=== PATIENT | female | born 1960 | race Caucasian/White ===

== ENCOUNTER → 2016-07-25 | Outpatient (CLI) | payer OTHER ==
[~2016-07-25] MED LIST: Gadobutrol 7.5 mMOL/7.5 ML SDV IVPUSH STA
--- NOTE | 2016-07-27 10:42 | MR ---
EXAM DATE: 07/25/16 PATIENT'S AGE: 56 Patient: NELDA STAFFORD Facility: [facility] Site . Site : 1960 Study: MRI-Head W/ and W/O Cont [id number]/2017 10:12:32 AM Ordering Physician: Ok Kumar Final Report: INDICATION: Headache. Dizziness. TECHNIQUE: The entire head was imaged in the axial plane emphasizing EPI DWI and EPI ADC mapping sequences as well as FLAIR and T2-weighted FSE sequences. A T1-weighted sagittal sequence was also obtained. Following the uneventful intravenous administration of gadolinium-based contrast agent, high resolution T1-weighted coronal and sagittal sequences through the sella turcica and adjacent structures were also obtained. Dynamic SE T1-weighted coronal sequences through the sella turcica were obtained during the injection of contrast material. FINDINGS: There are multiple subcentimeter foci of long TR and FLAIR signal hyperintensity in the jennifer and a few scattered throughout the white matter of both cerebral hemispheres, none of which demonstrates restricted diffusion or pathologic enhancement. There is no mass, mass effect, or focus of pathologic enhancement elsewhere in the brain. There is no evidence for recent or prior hemorrhage. There is no focus of restricted diffusion or pathologic enhancement to suggest recent infarction, active demyelination or acute inflammation. The configuration of the ventricular system is within normal limits. There is no significant abnormality within the sella turcica or the adjacent structures. The adenohypophysis is normal in size, contour, signal intensity and enhancement pattern. There is no focus of relative nonenhancement to suggest a pituitary microadenoma. The neurohypophysis demonstrates normal T1 shortening prior to gadolinium administration. The cavernous sinuses and their contents, Meckels caves, the suprasellar cistern, the hypophyseal stalk, hypothalamus and optic chiasm are all normal in appearance. All the major intracranial vascular structures demonstrate normal flow-related signal voids and normal intraluminal enhancement . There is no evidence for aneurysm arising from the cavernous or supraclinoid segments of the internal carotid arteries on either side. The signal arising from the marrow of the clivus is normal. The sphenoid sinus is clear. The orbits and their contents are unremarkable. IMPRESSION: 1. Nonspecific subcentimeter foci of signal abnormality in the jennifer and white matter of both cerebral hemispheres. Differential diagnosis includes a sequelae of chronic microvascular ischemia and/ or prior lacunar infarctions as well as prior demyelination prior inflammation. Findings such as these are not unusual in patients who suffer from migraine headaches. 2. Otherwise Normal dedicated high resolution images of the sella turcica, its contents and adjacent structures. Dictated by Jordy Cerda MD @ Jul 26 2016 5:35PM Signed by: Jordy Cerda MD @07/26/2016 5:41:08 PM (Electronic Signature) Report Signed by Proxy and Original Signed Document filed in the Medical Record. MTDD
== END ==
LOC: MW.MRI 08:30
PROVIDERS: ATTEND Student in an Organized Health Care Education/Training Program
DX: R51 Headache (principal); R42 Dizziness and giddiness
CPT/HCPCS: 70553; A9585

== ENCOUNTER → 2016-10-31 | Day surgery (SDC) | payer OTHER ==
[~2016-10-31] MED LIST changes: +Acetaminophen/HYDROcodone 325-5 MG Tab PO PRN; -Gadobutrol 7.5 mMOL/7.5 ML SDV IVPUSH STA; +Lactated Ringers 1,000 ML IV SCH; +ceFAZolin 2 GM in Premix Bag 1 BAG IV SCH; +fentaNYL 100 MCG/2 ML SDV IVPUSH PRN
--- NOTE | 2016-10-31 09:11 | PCM.PREANE ---
Preanesthetic Assessment - Anesthesia/Transfusion/Family Hx Anesthesia History: Prior Anesthesia Without Reaction Transfusion History: No Prior Transfusion(s) - Review of Systems General: No Symptoms Pulmonary: No Symptoms Cardiovascular: No Symptoms Gastrointestinal: No symptoms Neurological: No Symptoms Other: Reports: None - Physical Assessment O2 Sat by Pulse Oximetry: 95 Respiratory Rate: 16 Vital Signs: Last Vital Signs Temp 97.7 F 10/31/16 07:51 Pulse 73 10/31/16 07:51 Resp 16 10/31/16 07:51 BP 158/84 H 10/31/16 07:51 Pulse Ox 95 10/31/16 07:51 Height: 5 ft 3 in Weight: 99.79 kg ASA Class: 2 Mental Status: Alert & Oriented x3 Airway Class: Mallampati = 2 Dentition: Reports: Normal Dentition Thyro-Mental Finger Breadths: 3 Mouth Opening Finger Breadths: 3 ROM/Head Extension: Full Lungs: Clear to auscultation, Normal respiratory effort Cardiovascular: Regular Rate, Regular Rhythm - Allergies Allergies/Adverse Reactions: Allergies Allergy/AdvReac Type Severity Reaction Status Date / Time Sulfa (Sulfonamide Allergy Nausea and Verified 10/20/16 08:07 Antibiotics) Vomiting - Anesthesia Plan Free Text/Narrative:: BMP ordered, New diagnosis Hyperaldosteronism in last 12 months with no follow- up - Acknowledgements Anesthesia Type Planned: General Anesthesia Pt an Appropriate Candidate for the Planned Anesthesia: Yes Alternatives and Risks of Anesthesia Discussed w Pt/Guardian: Yes Pt/Guardian Understands and Agrees with Anesthesia Plan: Yes PreAnesthesia Questionnaire HEENT History: Reports: Allergic Rhinitis Cardiovascular History: Reports: Hypertension Respiratory History: Reports: None Gastrointestinal History: Reports: GERD, Hiatal Hernia Genitourinary History: Reports: Renal Calculus (04/01 - bilateral non- obstructing renal stones) 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: Musculoskeletal History: Reports: Arthritis Neurological History: Reports: Migraines Psychiatric History: Reports: Anxiety, Depression Endocrine/Metabolic History: Reports: Hypothyroidism, Obesity/BMI 30+, Other ( See Below) (Parathyroid disorder (pt unable to recall much about this)) Other Endocrine/Metabolic History: on thyroid medication in the past, currently not on anything Hematologic History: Reports: Anesthesia Reaction (N/V post-op in the past well controlled with IV intra-op interventions per patient (Has never had Scop Patch) ) Immunologic History: Reports: None Oncologic (Cancer) History: Reports: None Dermatologic History: Reports: None - Infectious Disease History Infectious Disease History: Reports: None - Past Surgical History Head Surgeries/Procedures: Reports: None GI Surgical History: Reports: Appendectomy, Cholecystectomy Female Surgical History: Reports: Breast Biopsy, Section - SUBSTANCE USE Smoking Status *Q: Never Smoker Recreational Drug Use History: No - HOME MEDS Home Medications: Home Meds Calcitriol 0.5 mcg PO BID 10/20/16 [History] Escitalopram Oxalate 10 mg PO DAILY 10/20/16 [History] Losartan Potassium 50 mg PO BEDTIME 10/20/16 [History] Spironolactone [Aldactone] 50 mg PO DAILY 10/20/16 [History] buPROPion HCl [Wellbutrin Xl] 150 mg PO DAILY 10/20/16 [History] - CURRENT (IN HOUSE) MEDS Current Meds: Current Medications Hydrocodone Bitart/Acetaminophen ([place] 325-5 Mg) 1 - 2 tab PO Q4H PRN PRN Reason: Pain Lactated Ringer's (Ringers, Lactated) 1,000 mls @ 100 mls/hr IV ASDIRECTED [facility] Last Admin: 10/31/16 08:12 Dose: 100 mls/hr Cefazolin Sodium/Dextrose 2 gm (/ Premix) 50 mls @ 100 mls[facility]
--- NOTE | 2016-10-31 09:32 | PCM.OPNOTE ---
- General Post-Op/Procedure Note Date of Surgery/Procedure: 10/31/16 Operative Procedure(s): Left knee arthroscopy with PMM Post-Op Diagnosis: Left knee DJD. Left knee medial meniscus tear Anesthesia Technique: General LMA Primary Surgeon: Laisha Pepe Assurance Specialist: Roxanne Elkins in mLs: 5 Condition: Good Free Text/Narrative:: tt=15 min #[id number] Pt stated preoperatively that she has a h/o hypoaldosteronism. She has had hypokalemia in the past. Preoperative labs were ordered and wnl. She is encouraged to f/u with a PCP for further evaluation of this postoperatively.
--- NOTE | 2016-10-31 10:56 | PCM48HPAN ---
Post Anesthesia Note - EVALUATION WITHIN 48HRS OF ANESTHETIC Vital Signs in Normal Range: Yes Patient Participated in Evaluation: Yes Respiratory Function Stable: Yes Airway Patent: Yes Cardiovascular Function Stable: Yes Hydration Status Stable: Yes Pain Control Satisfactory: Yes Nausea and Vomiting Control Satisfactory: Yes Mental Status Recovered: Yes
--- NOTE | 2016-10-31 10:57 | PCM.POSTAN ---
POST ANESTHESIA ASSESSMENT - MENTAL STATUS Mental Status: alert, oriented - RESPIRATORY Respiratory Status: respiratory rate WNL, airway patent, O2 saturation stable - CARDIOVASCULAR CV Status: pulse rate WNL, blood pressure stable - GASTROINTESTINAL GI Status: no symptoms - POST OP HYDRATION Hydration Status: adequate & stable
[2016-10-31 11:55] VITALS: BP 132/63
--- NOTE | 2016-11-01 06:05 | OR ---
SURGEON: Laisha Pepe MD DATE OF PROCEDURE: 10/31/2016 PREOPERATIVE DIAGNOSIS: Left knee degenerative joint disease. POSTOPERATIVE DIAGNOSES: 1. Left knee degenerative joint disease. 2. Left knee medial meniscus tear. PROCEDURE: Left knee arthroscopy with partial medial meniscectomy. ANGULAR DEVELOPER: MARY JANE Sal ANESTHESIA: General. ESTIMATED BLOOD LOSS: 5 mL. TOURNIQUET TIME: 15 minutes. COMPLICATIONS: None. DVT PROPHYLAXIS: Not indicated. IMPLANTS USED: None. BRIEF HISTORY: Elisa is a 56-year-old female, who has had complaint of progressive left knee pain. She did have an MRI, which did show truncation of the medial meniscus along with degenerative changes. She did not have any response to the diagnostic/therapeutic injection. Due to her lack of response to conservative treatment, I did recommend surgical intervention. The risks and goals of the procedure were discussed with the patient and were documented preoperatively. She agreed to proceed. DESCRIPTION OF PROCEDURE: The patient was properly identified and brought to the operating room. She was transferred from the OR cart and placed on the operating table in supine position. General anesthesia was administered. After adequate anesthesia was obtained, a well-padded tourniquet was applied to the left lower extremity. The left lower extremity was then prepped in standard fashion using ChloraPrep solution. It was then sterilely draped. A time-out was performed to ensure correct site and procedure. Preoperative antibiotics were given. The surgical site had been marked preoperatively. An Esmarch was used to exsanguinate the left lower extremity and the tourniquet was inflated to 250 mmHg. A lateral portal arthrotomy was established. Blunt trocar and cannula were introduced into the suprapatellar pouch. Camera, inflow, and outflow were assembled. No significant synovitis was noted within the suprapatellar pouch. The patellofemoral joint was visualized. 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 The patella appeared to track centrally. I then extended down the lateral and medial gutter. No loose bodies were identified. I then entered the medial compartment. A medial portal arthrotomy was established. A blunt probe was inserted. The meniscus was probed. There was an area of undersurface tearing along the central portion of the posterior horn. This was resected with a combination of biters and shaver. The meniscus was again probed and found to be stable. She did have an area of measuring approximately 15 mm x 20 mm over the central portion of the medial femoral condyle of grade 3 chondromalacia. This was smoothed using the shaver. No further cartilage flaps were noted. The medial tibial plateau showed diffuse grade 2 to grade 3 chondromalacia as well. I then entered the notch. Both the ACL and PCL were visualized and probed and found to be intact. I finally entered the lateral compartment. Again, degenerative changes were noted with a grade 2 chondromalacia along the lateral tibial plateau. There was a small area measuring approximately 5 mm x 5 mm over the posterior aspect of the lateral femoral condyle. A chondroplasty was performed on this area as well with the shaver as there were some loose cartilage fragments. The meniscus was extensively probed and no tearing or instability was noted. I then re-entered the patellofemoral joint. The shaver was used to resect the loose cartilage along the central portion of the trochlea. This defect was grade 3 to grade 4, which measured approximately 15 mm x 15 mm. Instruments were then removed from the knee. The portal sites were closed with 3-0 nylon. Lidocaine 1% was injected along the portal tracts. Xeroform gauze was placed over the wound and a bulky dressing was applied. Tourniquet was then deflated. She was awakened from her anesthetic and transferred back to the operating room cart. She was brought to recovery room in stable condition. All needle and sponge counts were correct. RANDELL / CINTIA /[id number]
== END ==
LOC: MW.SDS 07:30
PROVIDERS: ATTEND Orthopaedic Surgery
PROC: 0SBD4ZZ Excision of Left Knee Joint, Percutaneous Endoscopic Approach (ICD-10-PCS; principal; 2016-10-31)
DX: S83.242A Other tear of medial meniscus, current injury, left knee, initial encounter (principal); M17.12 Unilateral primary osteoarthritis, left knee; M22.41 Chondromalacia patellae, right knee; F32.9 Major depressive disorder, single episode, unspecified; K21.9 Gastro-esophageal reflux disease without esophagitis; I10 Essential (primary) hypertension; M19.90 Unspecified osteoarthritis, unspecified site; E20.1 Pseudohypoparathyroidism; E87.6 Hypokalemia; E03.9 Hypothyroidism, unspecified; I45.10 Unspecified right bundle-branch block; F41.9 Anxiety disorder, unspecified; E26.9 Hyperaldosteronism, unspecified; E66.9 Obesity, unspecified; Z87.442 Personal history of urinary calculi; Z79.899 Other long term (current) drug therapy; Z88.2 Allergy status to sulfonamides; Z90.49 Acquired absence of other specified parts of digestive tract; Z98.890 Other specified postprocedural states; Z68.37 Body mass index [BMI] 37.0-37.9, adult
CPT/HCPCS: 29881; 36415; 80048; 93005; J7120; 01400; 88304; J1885; J2250; J2405; J2704; J3010

== ENCOUNTER 2017-07-10 07:07 | Inpatient (IN) | payer OTHER ==
[~2017-07-10 07:07] MED LIST changes: -Acetaminophen/HYDROcodone 325-5 MG Tab PO PRN; +Famotidine 20 MG/2 ML SDV IVPUSH SCH; +Ketorolac 30 MG/ML SDV IVPUSH SCH; -Lactated Ringers 1,000 ML IV SCH; +Scopolamine 1.5 MG Transdermal Patch TRDERM SCH; -ceFAZolin 2 GM in Premix Bag 1 BAG IV SCH; -fentaNYL 100 MCG/2 ML SDV IVPUSH PRN; +oxyCODONE ER 20 MG TAB.ER PO SCH
[2017-07-10] MEDS ORDERED: Lidocaine 2% 5 ML SDV ONE (07:24)
[2017-07-10] MEDS ORDERED: Propofol 200 MG/20 ML SDV ONE ×2 (07:25→09:11)
[2017-07-10] MEDS ORDERED: Midazolam 1 MG/ML 2 ML SDV ONE (07:25)
[2017-07-10] MEDS ORDERED: fentaNYL 100 MCG/2 ML SDV ONE (07:25)
[2017-07-10] MEDS: Lactated Ringers 1,000 ML IV SCH ×2 (07:25→19:03)
[2017-07-10] MEDS ORDERED: Ketorolac 30 MG/ML SDV ONE (07:28)
[2017-07-10] MEDS ORDERED: ePHEDrine 50 MG/ML SDV ONE (07:28)
[2017-07-10] MEDS ORDERED: Ondansetron 4 MG/2 ML SDV ONE (07:28)
[2017-07-10] MEDS ORDERED: Tranexamic Acid 4,000 MG in Sodium Chloride 0.9% 100 ML IV SCH (08:00)
[2017-07-10] MEDS ORDERED: ceFAZolin 2 GM in Premix Bag 1 BAG IV SCH (08:00)
[2017-07-10] MEDS ORDERED: Ropivacaine 49.25 ML, Ketorolac 30 MG, EPINEPHrine 0.5 MG, cloNIDine 80 MCG in Sodium C... INJECT SCH (08:00)
[2017-07-10] MEDS ORDERED: oxyCODONE 5 MG Tab PO PRN (08:26)
[2017-07-10] MEDS ORDERED: Bisacodyl 10 MG Supp RECTAL PRN (08:26)
[2017-07-10] MEDS ORDERED: Aluminum Hydroxide/Magnesium Hydroxide/Simethicone Susp 30 ML Cup PO PRN (08:26)
[2017-07-10] MEDS ORDERED: diphenhydrAMINE 50 MG/ML SDV IVPUSH PRN (08:26)
[2017-07-10] MEDS ORDERED: Morphine PF 30 MG/30 ML PCA Vial IV SCH (08:30)
--- NOTE | 2017-07-10 08:33 | PCM.PREANE ---
Preanesthetic Assessment - Procedure Proposed Procedure: left knee replacement - Anesthesia/Transfusion/Family Hx Anesthesia History: Prior Anesthesia Without Reaction Other Type of Anesthesia Reaction Comment: states "I have a hard time coming out of anesthesia" Family History of Anesthesia Reaction: No Transfusion History: No Prior Transfusion(s) - Review of Systems General: Other (pseudohypoparathyroidism, primary hyperaldosteronism, HTN, depression/anxiety disorder, osteoarthritis) Pulmonary: No Symptoms Cardiovascular: No Symptoms Gastrointestinal: No Symptoms Neurological: Difficulty Walking (due to left knee pain) - Physical Assessment NPO Status Date: 07/09/17 NPO Status Time: 23:00 O2 Sat by Pulse Oximetry: 94 Respiratory Rate: 16 Vital Signs: Last Vital Signs Temp 97.5 F 07/10/17 07:12 Pulse 69 07/10/17 07:12 Resp 16 07/10/17 07:12 BP 137/75 07/10/17 07:12 Pulse Ox 94 L 07/10/17 07:12 Height: 5 ft 3 in Weight: 220 lb ASA Class: 3 Mental Status: Alert & Oriented x3 Airway Class: Mallampati = 2 Dentition: Reports: Normal Dentition Thyro-Mental Finger Breadths: 3 Mouth Opening Finger Breadths: 3 ROM/Head Extension: Limited/Partial (short, full neck) - Lab Values: Laboratory Last Values Blood Type A POSITIVE 07/10/17 07:30 Antibody Screen NEGATIVE 07/10/17 07:30 - Allergies Allergies/Adverse Reactions: Allergies Allergy/AdvReac Type Severity Reaction Status Date / Time hydrocodone Allergy Intermediate Rash Verified 07/10/17 07:51 Sulfa (Sulfonamide Allergy Nausea and Verified 07/10/17 07:49 Antibiotics) Vomiting - Blood Blood Available: No Product(s) Available: None (T and S) - Anesthesia Plan Pre-Op Medication Ordered: Other (per surgeon) - Acknowledgements Anesthesia Type Planned: Spinal (possible general as needed) Pt an Appropriate Candidate for the Planned Anesthesia: Yes Alternatives and Risks of Anesthesia Discussed w Pt/Guardian: Yes Pt/Guardian Understands and Agrees with Anesthesia Plan: Yes PreAnesthesia Questionnaire HEENT History: Reports: Allergic Rhinitis Cardiovascular History: Reports: Hypertension Respiratory History: Reports: None Gastrointestinal History: Reports: GERD, Hiatal Hernia Genitourinary History: Reports: Renal Calculus 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, Musculoskeletal History: Reports: Arthritis Neurological History: Reports: Migraines Psychiatric History: Reports: Anxiety, Depression Endocrine/Metabolic History: Reports: Hypothyroidism, Obesity/BMI 30+, Other ( See Below) Other Endocrine/Metabolic History: on thyroid medication in the past, currently not on anything, has primary hyperaldosteronism due to a left adrenal adenoma Hematologic History: Immunologic History: Reports: None Oncologic (Cancer) History: Reports: None Dermatologic History: Reports: None - Infectious Disease History Infectious Disease History: Reports: None - Past Surgical History Head Surgeries/Procedures: Reports: None GI Surgical History: Reports: Appendectomy, Cholecystectomy Female Surgical History: Reports: Breast Biopsy, Section Musculoskeletal Surgical History: Reports: Arthroscopic Knee - SUBSTANCE USE Smoking Status *Q: Never Smoker Recreational Drug Use History: No - HOME MEDS Home Medications: Home Meds Escitalopram Oxalate 10 mg PO DAILY 10/20/16 [History] Losartan Potassium 50 mg PO BEDTIME 10/20/16 [History] Spironolactone [Aldactone] 50 mg PO DAILY 10/20/16 [History] buPROPion HCl [Wellbutrin Xl] 150 mg PO DAILY 10/20/16 [History] Lansoprazole [Prevacid] 30 mg PO DAILY 07/05/17 [History] Mirabegron [Myrbetriq] 50 mg PO DAILY 07/05/17 [History] - CURRENT (IN HOUSE) MEDS Current Meds: Current Medications Famotidine (Pepcid) 40 mg IVPUSH [facility] Last Admin: 07/10/17 07:27 Dose: 40 mg Cefazolin Sodium/Dextrose 2 gm (/ Premix) 50 mls @ 100 mls/hr IV ONCALL [facility] Ropivacaine 49.25 ml/Ketorolac Tromethamine 30 mg/Epinephrine HCl 0.5 mg/ Clonidine HCl 80 mcg/ Sodium Chloride 100 mls @ 50 mls/sec INJECT ASDIRECTED [facility] Lactated Ringer's (Ringers, Lactated) 1,000 mls @ 100 mls/hr IV ASDIRECTED [facility] Last Admin: 07/10/17 07:25 Dose: 100 mls/hr Tranexamic Acid 4,000 mg/ (Sodium Chloride) 140 mls @ 600 mls/hr IV ASDIRECTED [facility] Ketorolac Tromethamine (Toradol) 30 mg IVPUSH [facility] Last Admin: 07/10/17 07:28 Dose: 30 mg Oxycodone HCl (Oxycontin) 20 mg PO ON[facility] Last Admin: 07/10/17 07:26 Dose: 20 mg Scopolamine (Transderm-Scop) 1.5 mg TRDERM [facility] Last Admin: 07/10/17 07:26 Dose: 1.5 mg Discontinued Medications Ephedrine Sulfate (Ephedrine Sulfate) Confirm Administered Dose 50 mg .ROUTE .STK-MED ONE Stop: 07/10/17 07:29 Fentanyl (Sublimaze) Confirm Administered Dose 100 mcg .ROUTE .STK-MED ONE Stop: 07/10/17 07:26 Ketorolac Tromethamine (Toradol) Confirm Administered Dose 30 mg .ROUTE .STK- MED ONE Stop: 07/10/17 07:29 Lidocaine (Xylocaine-Mpf 2%) Confirm Administered Dose 10 ml .ROUTE .STK-MED ONE Stop: 07/10/17 07:25 Midazolam HCl (Versed 1 Mg/Ml) Confirm Administered Dose 2 mg .ROUTE .STK-MED ONE Stop: 07/10/17 07:26 Ondansetron HCl (Zofran) Confirm Administered Dose 4 mg .ROUTE .STK-MED ONE Stop: 07/10/17 07:29 Propofol (Diprivan 20 Ml) Confirm Administered Dose 400 mg .ROUTE .STK-MED ONE Stop: 07/10/17 07:26 Tranexamic Acid (Cyklokapron) Confirm Administered Dose 4,000 mg .ROUTE .STK- MED ONE Stop: 07/10/17 07:16
[2017-07-10] MEDS ORDERED: fentaNYL 100 MCG/2 ML SDV IVPUSH PRN (10:28)
--- NOTE | 2017-07-10 10:48 | PCM.OPNOTE ---
- General Post-Op/Procedure Note Date of Surgery/Procedure: 07/10/17 Operative Procedure(s): L TKA Post-Op Diagnosis: DJD left knee Anesthesia Technique: Moderate Sedation, Spinal Primary Surgeon: Laisha Pepe Clothing Trades Workers: Roxanne Elkins in mLs: 50 Condition: Good Free Text/Narrative:: tt=41 min #[id number]
--- NOTE | 2017-07-10 11:29 | PCM.POSTAN ---
POST ANESTHESIA ASSESSMENT - MENTAL STATUS Mental Status: Alert, Oriented - RESPIRATORY Respiratory Status: Respiratory Rate WNL, Airway Patent, O2 Saturation Stable - CARDIOVASCULAR CV Status: Pulse Rate WNL, Blood Pressure Stable - GASTROINTESTINAL GI Status: No Symptoms - PAIN Pain Score: 0 (spinal still active) - POST OP HYDRATION Hydration Status: Adequate & Stable - OBSERVATIONS Free Text/Narrative:: Phase II transfer...stable condition
--- NOTE | 2017-07-10 12:26 | PCM.CONS ---
H&P History of Present Illness - General Date of Service: 07/10/17 Admit Problem/Dx: Admission Diagnosis/Problem Admission Diagnosis/Problem Replacement of left total knee joint Source of Information: Patient, Old Records (Reviewed Dr Malone and Dr Soriano's notes. 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 She has arrived to Med/Surg from the PACU, she is alert but drowsy. Hospitalist team consulted for medical management of comorbidities Pre-operative clearance notes reviewed from Dr Malone and Dr Soriano, gallery or museum guide. Elisa reports she is feeling well. No current chest pain, SOB, nausea or vomiting. Some L knee pain, but tolerable. She was just sitting up with PT at the edge of the bed. Post-operative labwork obtained due to hx of recent hypercalcemia and NEREIDA. Hgb 11.9. Na 140, K+ 4.4, BUN 24, Cr 1.2, Mg 1.5, Ca 9.3. Left Knee Pain Score (Numeric/FACES): 1 - Related Data Allergies/Adverse Reactions: Allergies Allergy/AdvReac Type Severity Reaction Status Date / Time hydrocodone Allergy Intermediate Rash Verified 07/10/17 07:51 Sulfa (Sulfonamide Allergy Nausea and Verified 07/10/17 07:49 Antibiotics) Vomiting Home Medications: Home Meds Escitalopram Oxalate 10 mg PO DAILY 10/20/16 [History] Losartan Potassium 50 mg PO BEDTIME 10/20/16 [History] Spironolactone [Aldactone] 50 mg PO DAILY 10/20/16 [History] buPROPion HCl [Wellbutrin Xl] 150 mg PO DAILY 10/20/16 [History] Lansoprazole [Prevacid] 30 mg PO DAILY 07/05/17 [History] Mirabegron [Myrbetriq] 50 mg PO DAILY 07/05/17 [History] Past Medical History HEENT History: Reports: Allergic Rhinitis Cardiovascular History: Reports: Hypertension. Denies: Afib, CAD Respiratory History: Reports: None. Denies: COPD Gastrointestinal History: Reports: GERD, Hiatal Hernia Genitourinary History: Reports: Renal Calculus PLASTIC TOOL MAKER History: Reports: Endometrial Ablation, Musculoskeletal History: Reports: Arthritis Neurological History: Reports: Migraines Psychiatric History: Reports: Anxiety, Depression Endocrine/Metabolic History: Reports: Hypothyroidism, Obesity/BMI 30+, Other ( See Below) Other Endocrine/Metabolic History: on thyroid medication in the past, currently not on anything, has primary hyperaldosteronism due to a left adrenal adenoma. pseudohyperparathyroidism type 1B Hematologic History: Immunologic History: Reports: None Oncologic (Cancer) History: Reports: None Dermatologic History: Reports: None - Infectious Disease History Infectious Disease History: Reports: None - Past Surgical History Head Surgeries/Procedures: Reports: None GI Surgical History: Reports: Appendectomy, Cholecystectomy Female Surgical History: Reports: Breast Biopsy, Section Musculoskeletal Surgical History: Reports: Arthroscopic Knee Social & Family History - Tobacco Use Smoking Status *Q: Never Smoker - Alcohol Use Alcohol Use History: No - Recreational Drug Use Recreational Drug Use: No H&P Review of Systems - Review of Systems: Review Of Systems: See Below General: Reports: No Symptoms. Denies: Fever, Chills, Malaise, Weakness Pulmonary: Reports: No Symptoms. Denies: Shortness of Breath Cardiovascular: Reports: No Symptoms. Denies: Chest Pain, Dyspnea on Exertion, Lightheadedness, Syncope Gastrointestinal: Reports: No Symptoms. Denies: Abdominal Pain, Black Stool, Bloody Stool, Nausea, Vomiting Genitourinary: Reports: No Symptoms. Denies: Dysuria, Frequency, Burning Musculoskeletal: Reports: Joint Pain (L knee pain) Skin: Reports: No Symptoms Neurological: Reports: No Symptoms Hematologic/Lymphatic: Reports: No Symptoms Immunologic: Reports: No Symptoms Exam - Exam Exam: See Below - Vital Signs Vital Signs: Last Vital Signs Temp 98.4 F 07/10/17 10:21 Pulse 83 07/10/17 10:56 Resp 12 07/10/17 10:56 BP 108/56 L 07/10/17 10:56 Pulse Ox 97 07/10/17 10:56 Weight: 99.79 kg - Exam Quality Assessment: Urinary Catheter, DVT Prophylaxis General: Alert, Oriented, Cooperative HEENT: Conjunctiva Clear Neck: Supple, Trachea Midline Lungs: Clear to Auscultation, Normal Respiratory Effort Cardiovascular: Regular Rate, Regular Rhythm, Normal S1, Normal S2. No: Tachycardia, Systolic Murmur GI/Abdominal Exam: Normal Bowel Sounds, Soft, Non-Tender, No Organomegaly, No Distention, No Abnormal Bruit, No Mass, Pelvis Stable Extremities: Normal Inspection, Normal Range of Motion, Non-Tender, No Pedal Edema, Normal Capillary Refill Skin: Incision (Dressing to L knee with polar ice) Neuro Extensive - Mental Status: Alert, Oriented x3, Normal Mood/Affect, Normal Cognition Neuro Extensive - Motor, Sensory, Reflexes: CN II-XII Intact Psychiatric: Alert, Normal Affect, Normal Mood - Patient Data Lab Results Last 24 hrs: Laboratory Results - last 24 hr 07/10/17 Range/Units 07:30 Blood Type A POSITIVE Antibody Screen NEGATIVE Result Diagrams: 07/10/17 12:50 07/10/17 12:50 Consult PN Assessment/Plan Procedures: Procedures ASSAY OF FREE THYROXINE (03/27/17) ASSAY OF PROTEIN URINE (03/14/16) ASSAY OF SERUM POTASSIUM (03/28/16) ASSAY THYROID STIM HORMONE (03/27/17) RO DNA DIR PROBE (03/27/17) CHORIONIC GONADOTROPIN ASSAY (08/23/13) COMP SCREEN MAMMOGRAM ADD-ON (03/08/16) CT ABD & PELV W/CONTRAST (06/08/15) CT ABDOMEN W/O DYE (04/14/16) CULTURE AEROBIC IDENTIFY (06/21/16) CULTURE OTHR SPECIMN AEROBIC (06/21/16) CULTURE SCREEN ONLY (01/01/16) ELECTROCARDIOGRAM TRACING (10/31/16) BERNABE VAG DNA DIR PROBE (03/27/17) KNEE ARTHROSCOPY/SURGERY (10/31/16) MANUAL THERAPY 1/> REGIONS (03/10/15) METABOLIC PANEL TOTAL CA (10/31/16) MRI BRAIN STEM W/O & W/DYE (07/25/16) MRI JNT OF LWR EXTRE W/O DYE (05/17/17) PT EVALUATION (03/10/15) ROUTINE VENIPUNCTURE (10/31/16) SMEAR WET MOUNT SALINE/INK (08/23/13) STREP A AG IA (01/01/16) THERAPEUTIC EXERCISES (03/19/15) TISSUE EXAM BY PATHOLOGIST (07/23/13) TRANSVAGINAL US NON-OB (09/17/14) TRICHOMONAS VAGIN DIR PROBE (03/27/17) ULTRASOUND BREAST LIMITED (04/04/17) URINALYSIS AUTO W/SCOPE (09/11/14) URINE CULTURE/COLONY COUNT (04/12/17) X-RAY EXAM KNEE 4 OR MORE (02/15/16) X-RAY EXAM L-S SPINE 2/3 VWS (01/26/15) (1) GERD (gastroesophageal reflux disease) SNOMED Code(s): 787336233 Code(s): K21.9 - GASTRO-ESOPHAGEAL REFLUX DISEASE WITHOUT ESOPHAGITIS Current Visit: Yes Qualifiers: Esophagitis presence: without esophagitis Qualified Code(s): K21.9 - Gastro -esophageal reflux disease without esophagitis (2) HTN (hypertension) SNOMED Code(s): 70331103 Code(s): I10 - ESSENTIAL (PRIMARY) HYPERTENSION Current Visit: Yes Qualifiers: Hypertension type: essential hypertension Qualified Code(s): I10 - Essential (primary) hypertension (3) Hypothyroidism SNOMED Code(s): 81859127 Code(s): E03.9 - HYPOTHYROIDISM, UNSPECIFIED Current Visit: Yes (4) Pseudohyperparathyroidism SNOMED Code(s): 161153831 Code(s): E20.1 - PSEUDOHYPOPARATHYROIDISM Current Visit: Yes (5) Primary aldosteronism Current Visit: Yes (6) Anxiety SNOMED Code(s): 34148816 Code(s): F41.9 - ANXIETY DISORDER, UNSPECIFIED Current Visit: Yes (7) Depression SNOMED Code(s): 63580765 Code(s): F32.9 - MAJOR DEPRESSIVE DISORDER, SINGLE EPISODE, UNSPECIFIED Current Visit: Yes Problem List Initiated/Reviewed/Updated: Yes My Orders Last 24 Hours: My Active Orders 07/10/17 12:17 BMP [BASIC METABOLIC PANEL,BMP] [CHEM] Routine CBC WITH AUTO DIFF [HEME] Routine MAGNESIUM [CHEM] Routine Plan: This 57 year old female admitted for L total knee with pmh of primary hyperaldosteronism, HTN, pseudohyperparathyroidism, recent NEREIDA and hypercalcemia 1. L TKA: Per Orthopedics. 2. HTN: Stable, continue Losartan. 3. Primary hyperaldosteronism: Stable, continue Spironolactone. Secondary to L adrenal adenoma, aldosterone producing. Monitor K+. 4. Pseudohyperparathyroidism Type 1B : Recent hypercalcemia and NEREIDA. Today BUN 24 and Cr 1.2, which are down from consult with Dr Soriano. Will discontinue Toradol, due to renal function and recent NEREIDA. Ca 9.3 today, she had stopped Calcitrol supplementation after Dr Soriano's recommendation and repeat Ca 10.4. Today Ca is 9.3. Continue to monitor and encourage hydration. 5. Anxiety/depression: Stable. Continue Wellbutrin and Lexapro. VTE prophylaxis: Recommend when deemed appropriate by Ortho. ASA BID currently ordered. SCDs.
[2017-07-10] MEDS: Spironolactone 25 MG Tab PO SCH (12:33)
[2017-07-10] MEDS: Mirabegron [Myrbetriq] 50 MG PO SCH (12:34)
[2017-07-10] MEDS: Lansoprazole 30 MG Orally Disintegrating Tab.CR PO SCH (12:34)
[2017-07-10] MEDS: Escitalopram 10 MG Tab PO SCH (12:34)
[2017-07-10] MEDS: buPROPion 150 MG Tab.ER PO SCH (12:34)
--- NOTE | 2017-07-10 12:37 | OR ---
SURGEON: Laisha Pepe MD DATE OF PROCEDURE: 07/10/2017 PREOPERATIVE DIAGNOSIS: Degenerative joint disease, left knee, tricompartmental. POSTOPERATIVE DIAGNOSIS: Degenerative joint disease, left knee, tricompartmental. PROCEDURE: Left total knee arthroplasty using patient specific instrumentation. STRAIGHTENER AND ALIGNER: Roxanne Elkins PA-C. ANESTHESIA: Spinal with sedation. ESTIMATED BLOOD LOSS: 50 mL. TOURNIQUET TIME: 41 minute. COMPLICATIONS: None. DVT PROPHYLAXIS: PAS boot and VINICIUS hose to the nonoperative leg. IMPLANTS USED: Noni Persona femoral component size 7 standard (LPS), tibial component size F, 10 mm all-polyethylene articular surface, and 35 mm all-polyethylene patella. 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 Osteophyte formation was also noted. No significant synovitis was found. BRIEF HISTORY: Elisa is the 57-year-old female, who has had complaint of progressive left knee pain. She did undergo a left knee arthroscopy in the past, which did confirm grade 4 chondromalacia in all three compartments. She had failed conservative treatment. Due to her lack of response to conservative treatment, I did recommend surgical intervention. The risks and goals of procedure were discussed with the patient and were documented preoperatively. She agreed to proceed. DESCRIPTION OF PROCEDURE: The patient was properly identified and brought to the operating room. The patient was then transferred from the operating room cart and placed on the operating table in a supine position. Anesthesia was administered by the anesthesia staff. After adequate anesthesia was obtained, a well-padded tourniquet was applied to the surgical lower extremity. Manuel catheter was placed. The lower extremity was then prepped in standard fashion using ChloraPrep solution. It was then sterilely draped. A time-out was performed to ensure correct site and procedure. Preoperative antibiotics were given along with one gram of tranexamic acid IV. The surgical site had been marked preoperatively. An Esmarch was used to exsanguinate the right lower extremity and the tourniquet was inflated. An incision was made over the anterior aspect of the knee. The subcutaneous tissues were dissected down to the level of the fascia. A medial parapatellar approach to the knee was made. A portion of the infrapatellar fat pad was then excised. The distal femur was then exposed. The femoral patient-specific cutting guide was then placed. Pins were also placed. The distal femoral cutting block was placed and the distal femoral cut was made. Instrumentation was then removed. Both Whitesides' line and the epicondylar axis were then marked with electrocautery. The 4-in-1 cutting block was placed. This was placed in a slightly externally rotated position, which corresponded well with the previously drawn lines. The cutting guide was then pinned into position. An Adalberto wing guide was used to check the depth of resection of our anterior condylar cut and it was felt that no notching would occur. The anterior condylar cut was then made followed by the posterior condylar cut. Both the posterior chamfer and anterior chamfer cuts were then made. The cutting block was then removed along with the excess bony remnants. We then turned our attention to the tibia. The anterior cruciate ligament and posterior cruciate ligament were released and a posterior cruciate ligament retractor was placed to allow the tibia to be pulled anteriorly. The tibial patient-specific guide was then placed on the proximal tibia. This fit anatomically. The pins were then placed. The proximal tibia cutting guide was then placed and screwed into position. The proximal tibial resection was then made with care being taken to protect the patellar tendon. The bony resection was then removed. The remainder of the medial and lateral meniscus were then excised. Care was taken to protect the popliteus tendon. The tibia was then sized to the appropriate size. The distal femur was then elevated. The posterior capsule was stripped off the distal femur both medially and laterally. The posterior capsule along with the medial and lateral gutters were then injected with a standard mixture consisting of clonidine, epinephrine, Toradol, and Ropivacaine, unless any allergies were found preoperatively. The femoral component was then placed onto the distal femur in a slightly lateral position. This fit the femur well. A box cut was then made without difficulty. This was then removed. The tibial trial along with the polyethylene liner was then placed. The knee came easily into full extension and was stable to varus and valgus stressing both in full extension and flexion. Any additional releases were performed at this time. We then returned our attention to the patella. The patella was everted and towel clamps were used to hold the patella in position. It was resected to a 15 millimeter thickness. It was then sized to the appropriate size. It was prepared in the usual fashion after placing the predetermined size clamps. This was placed in a slightly superior and medial position. The clamp was then removed. The patellar trial button was placed. The knee was taken through a range of motion using the no-touch technique. The patella tracked centrally. A drop amy was then placed to check alignment. All instruments were then removed from the knee. The tibial sizer was then placed on the tibia. The tibia was prepared in the usual fashion using the reamer and broach. This was then removed. All bony surfaces were copiously irrigated with Pulsavac solution. They were then suctioned dry. Cement was prepared on the back table in the usual manner. Once it was prepared, the bone ends were again suctioned dry. The tibia was cemented into place first. This was malleted into position. Excess cement was then cleared. The femur was then placed in a similar manner. We placed the polyethylene trial into place and the knee was brought into full extension. An axial load was placed while keeping the knee in full extension. The patella button was also cemented into position and the clamp was used to hold this in place as the cement was allowed to cure. The wound was again copiously irrigated with saline solution using a Pulsavac facility service manager. Following this, 1 g of tranexamic acid was applied to the wound topically. After we had adequate curing of the cement, the knee was again taken through a range of motion. The size of the polyethylene was then determined. The polyethylene trial was then removed. The tibial tray was suctioned to make sure there was no remaining soft tissue or cement. Excess cement was cleared from around the edges of the prosthesis as well. The tourniquet was then deflated. We were able to observe for any excess bleeding and none was noted. Electrocautery was used to maintain hemostasis. An additional gram of tranexamic acid was given IV. The retractors were again placed and the predetermined polyethylene was then placed. This was locked into position without difficulty. The knee was again taken through a range of motion with no change from the prior exam. The fascial layer was closed with #1 Vicryl. The subcutaneous tissues were closed with 2-0 Vicryl. The skin was closed with juliana. Xeroform gauze was placed over the wound and a bulky dressing was applied. The patient was then awakened from anesthesia and transferred back to the operating room cart. They were brought to the recovery room in stable condition. All needle and sponge counts were correct. RANDELL / CINTIA /[id number]
[2017-07-10] MEDS: Acetaminophen 1,000 MG in Premix Bag 1 BAG IV SCH ×2 (12:41→18:35)
--- NOTE | 2017-07-10 14:05 | CR ---
EXAMINATION: Left knee HISTORY: TKA COMPARISON: 05/17/2017 TECHNIQUE: 2 views FINDINGS/IMPRESSION: Left total knee hardware demonstrated in good position and alignment. Postoperat checo soft tissue changes noted.
[2017-07-10] MEDS: ceFAZolin 2 GM in Premix Bag 1 BAG IV SCH (15:57)
[2017-07-10] MEDS ORDERED: Ketorolac 15 MG/ML SDV IVPUSH SCH (16:00)
[2017-07-10] MEDS: Docusate Sodium 100 MG Cap PO SCH (21:22)
[2017-07-10] MEDS: oxyCODONE ER 20 MG TAB.ER PO SCH (21:23)
[2017-07-10] MEDS: Losartan 50 MG Tab PO SCH (21:32)
[2017-07-11] MEDS: ceFAZolin 2 GM in Premix Bag 1 BAG IV SCH (01:18)
[2017-07-11] MEDS: Acetaminophen 1,000 MG in Premix Bag 1 BAG IV SCH (01:55)
[2017-07-11] MEDS ORDERED: Acetaminophen/oxyCODONE 325-5 MG Tab PO PRN (08:00)
[2017-07-11] MEDS ORDERED: Morphine 4 MG/ML Syringe IVPUSH PRN (08:00)
[2017-07-11] MEDS ORDERED: Ondansetron 4 MG/2 ML SDV ONE (09:14)
[2017-07-11] MEDS ORDERED: Ondansetron 4 MG/2 ML SDV IVPUSH PRN ×2 (09:38→09:40)
--- NOTE | 2017-07-11 09:49 | PCM.CONSN ---
- General Info Date of Service: 07/11/17 Admission Dx/Problem (Free Text): Admission Diagnosis/Problem Admission Diagnosis/Problem Replacement of left total knee joint Subjective Update: Nauseated this morning, vomiting, not eating or drinking well. No chest pain or SOB. No neurologic deficits. No other complaints. Feels very sleepy and knee pain is ok. Functional Status: Reports: Pain Controlled. Denies: Tolerating Diet - Review of Systems General: Reports: No Symptoms. Denies: Fever HEENT: Reports: No Symptoms. Denies: Headaches, Sore Throat, Visual Changes Pulmonary: Reports: No Symptoms. Denies: Shortness of Breath, Cough, Sputum Cardiovascular: Reports: No Symptoms. Denies: Chest Pain, Edema Gastrointestinal: Reports: Nausea, Vomiting. Denies: Abdominal Pain Genitourinary: Reports: No Symptoms. Denies: Dysuria, Frequency, Burning, Pain Musculoskeletal: Reports: Joint Pain (L knee pain, tolerable. ). Denies: Neck Pain Skin: Reports: No Symptoms Neurological: Reports: No Symptoms Psychiatric: Reports: No Symptoms - Patient Data Vitals - Most Recent: Last Vital Signs Temp 98.6 F 07/11/17 00:00 Pulse 75 07/11/17 00:00 Resp 18 07/11/17 00:00 BP 128/66 07/11/17 00:00 Pulse Ox 93 L 07/11/17 00:00 Weight - Most Recent: 99.79 kg I&O - Last 24 Hours: Intake & Output 07/10/17 07/11/17 07/11/17 22:59 06:59 14:59 Intake Total 1344 Output Total 350 Balance 994 Lab Results Last 24 Hours: Laboratory Results - last 24 hr 07/10/17 07/10/17 Range/Units 12:50 12:50 WBC 6.76 (4.0-11.0) K/uL RBC 3.89 L (4.30-5.90) M/uL Hgb 11.9 L (12.0-16.0) g/dL Hct 36.9 (36.0-46.0) % MCV 94.9 (80.0-98.0) fL MCH 30.6 (27.0-32.0) pg MCHC 32.2 (31.0-37.0) g/dL RDW Std Deviation 46.5 (28.0-62.0) fl RDW Coeff of Suzanne 13 (11.0-15.0) % Plt Count 278 (150-400) K/uL MPV 9.70 (7.40-12.00) fL Neut % (Auto) 74.5 (48.0-80.0) % Lymph % (Auto) 14.5 L (16.0-40.0) % [place] % (Auto) 7.1 (0.0-15.0) % Eos % (Auto) 3.6 (0.0-7.0) % Baso % (Auto) 0.3 (0.0-1.5) % Neut # (Auto) 5.0 (1.4-5.7) K/uL Lymph # (Auto) 1.0 (0.6-2.4) K/uL [place] # (Auto) 0.5 (0.0-0.8) K/uL Eos # (Auto) 0.2 (0.0-0.7) K/uL Baso # (Auto) 0.0 (0.0-0.1) K/uL Nucleated RBC % 0.0 /100WBC Nucleated RBCs # 0 K/uL Sodium 140 (136-145) mmol/L Potassium 4.4 (3.5-5.1) mmol/L Chloride 108 H (98-107) mmol/L Carbon Dioxide 24.8 (21.0-32.0) mmol/L BUN 24 H (7.0-18.0) mg/dL Creatinine 1.2 H (0.6-1.0) mg/dL Est Cr Clr Drug Dosing 42.79 mL/min Estimated GFR (MDRD) 46.3 ml/min Glucose 86 (74-106) mg/dL Calcium 9.3 (8.5-10.1) mg/dL Magnesium 1.5 (1.5-2.0) mg/dL Med Orders - Current: Current Medications Al Hydroxide/Mg Hydroxide (Mag-Al Plus) 30 ml PO Q4H PRN PRN Reason: Indigestion Aspirin (Aspirin) 325 mg PO BID [facility] Bisacodyl (Dulcolax) 10 mg RECTAL DAILY PRN PRN Reason: Constipation Bupropion HCl (Wellbutrin Xl) 150 mg PO DAILY [facility] Last Admin: 07/10/17 12:34 Dose: Not Given Diphenhydramine HCl (Benadryl) 25 mg IVPUSH Q4H PRN PRN Reason: Itching Docusate Sodium (Colace) 100 mg PO BID [facility] Last Admin: 07/10/17 21:22 Dose: 100 mg Escitalopram Oxalate (Lexapro) 10 mg PO DAILY [facility] Last Admin: 07/10/17 12:34 Dose: Not Given Famotidine (Pepcid) 40 mg IVPUSH ONARRIVE [facility] Last Admin: 07/10/17 07:27 Dose: 40 mg Famotidine (Pepcid) 40 mg PO DAILY [facility] Fentanyl (Sublimaze) 50 mcg IVPUSH Q5M PRN PRN Reason: Pain (severe 7-10) Stop: 07/11/17 10:28 Cefazolin Sodium/Dextrose 2 gm (/ Premix) 50 mls @ 100 mls/hr IV ONCALL [facility] Ropivacaine 49.25 ml/Ketorolac Tromethamine 30 mg/Epinephrine HCl 0.5 mg/ Clonidine HCl 80 mcg/ Sodium Chloride 100 mls @ 50 mls/sec INJECT ASDIRECTED [facility] Lactated Ringer's (Ringers, Lactated) 1,000 mls @ 100 mls/hr IV ASDIRECTED [facility] Last Admin: 07/10/17 19:03 Dose: 100 mls/hr Tranexamic Acid 4,000 mg/ (Sodium Chloride) 140 mls @ 600 mls/hr IV ASDIRECTED [facility] Ketorolac Tromethamine (Toradol) 30 mg IVPUSH ONARRIVE [facility] Last Admin: 07/10/17 07:28 Dose: 30 mg Lansoprazole (Prevacid Solutab) 30 mg PO DAILY [facility] Last Admin: 07/10/17 12:34 Dose: Not Given Losartan Potassium (Cozaar) 50 mg PO BEDTIME [facility] Last Admin: 07/10/17 21:32 Dose: Not Given Morphine Sulfate (Morphine) 1 - 3 mg IVPUSH Q3H PRN PRN Reason: Pain Ondansetron HCl (Zofran) 4 mg IVPUSH Q6H PRN PRN Reason: NAUSEA Ondansetron HCl (Zofran) 4 mg IVPUSH Q6H PRN PRN Reason: Nausea/Vomiting Oxycodone HCl (Oxycontin) 20 mg PO ONARRIVE [facility] Last Admin: 07/10/17 07:26 Dose: 20 mg Oxycodone HCl (Oxycontin) 20 mg PO BID [facility] Last Admin: 07/10/17 21:23 Dose: 20 mg Oxycodone/Acetaminophen (Percocet 325-5 Mg) 1 - 2 tab PO Q4H PRN PRN Reason: Pain Mirabegron [ (Myrbetriq] 50 Mg) 1 each PO DAILY [facility] Last Admin: 07/10/17 12:34 Dose: Not Given Scopolamine (Transderm-Scop) 1.5 mg TRDERM ONARRIVE [facility] Last Admin: 07/10/17 07:26 Dose: 1.5 mg Spironolactone (Aldactone) 50 mg PO DAILY [facility] Last Admin: 07/10/17 12:33 Dose: Not Given Discontinued Medications Ephedrine Sulfate (Ephedrine Sulfate) Confirm Administered Dose 50 mg .ROUTE .STK-MED ONE Stop: 07/10/17 07:29 Fentanyl (Sublimaze) Confirm Administered Dose 100 mcg .ROUTE .STK-MED ONE Stop: 07/10/17 07:26 Acetaminophen 1,000 mg/ Premix 100 mls @ 400 mls/hr IV Q6H [facility] Stop: 07/11/17 01:14 Last Admin: 07/11/17 01:55 Dose: 400 mls/hr Cefazolin Sodium/Dextrose 2 gm (/ Premix) 50 mls @ 100 mls/hr IV Q8H [facility] Stop: 07/11/17 00:59 Last Admin: 07/11/17 01:18 Dose: 100 mls/hr Ketorolac Tromethamine (Toradol) Confirm Administered Dose 30 mg .ROUTE .STK- MED ONE Stop: 07/10/17 07:29 Ketorolac Tromethamine (Toradol) 15 mg IVPUSH Q6H [facility] Stop: 07/11/17 09:00 Lidocaine (Xylocaine-Mpf 2%) Confirm Administered Dose 10 ml .ROUTE .STK-MED ONE Stop: 07/10/17 07:25 Midazolam HCl (Versed 1 Mg/Ml) Confirm Administered Dose 2 mg .ROUTE .STK-MED ONE Stop: 07/10/17 07:26 Morphine Sulfate (Morphine Associate Project Manager 30 Mg In 30 Ml) 30 mg IV ASDIRECTED [facility]; Protocol Stop: 07/11/17 08:00 Last Admin: 07/10/17 11:00 Dose: 30 mg Ondansetron HCl (Zofran) Confirm Administered Dose 4 mg .ROUTE .STK-MED ONE Stop: 07/10/17 07:29 Ondansetron HCl (Zofran) Confirm Administered Dose 4 mg .ROUTE .STK-MED ONE Stop: 07/11/17 09:15 Oxycodone HCl (Oxycodone) 5 - 10 mg PO Q4H PRN PRN Reason: Pain Stop: 07/11/17 08:00 Last Admin: 07/11/17 02:03 Dose: 10 mg Propofol (Diprivan 20 Ml) Confirm Administered Dose 400 mg .ROUTE .STK-MED ONE Stop: 07/10/17 07:26 Propofol (Diprivan 20 Ml) Confirm Administered Dose 200 mg .ROUTE .STK-MED ONE Stop: 07/10/17 09:12 Tranexamic Acid (Cyklokapron) Confirm Administered Dose 4,000 mg .ROUTE .STK- MED ONE Stop: 07/10/17 07:16 - Exam Quality Assessment: Urine Catheter, DVT Prophylaxis General: Alert, Oriented, Cooperative, No Acute Distress Neck: Supple Lungs: Clear to Auscultation, Normal Respiratory Effort Cardiovascular: Regular Rate, Regular Rhythm GI/Abdominal Exam: Normal Bowel Sounds, Soft, Non-Tender, No Organomegaly, No Distention, No Abnormal Bruit, No Mass, Pelvis Stable Back Exam: Full Range of Motion Extremities: Normal Inspection, Normal Range of Motion, Non-Tender, No Pedal Edema, Normal Capillary Refill Wound/Incisions: Dressing Dry and Intact Neurological: No New Focal Deficit Psy/Mental Status: Alert, Normal Affect, Normal Mood Consult PN Assessment/Plan Procedures: Procedures ASSAY OF FREE THYROXINE (03/27/17) ASSAY OF PROTEIN URINE (03/14/16) ASSAY OF SERUM POTASSIUM (03/28/16) ASSAY THYROID STIM HORMONE (03/27/17) RO DNA DIR PROBE (03/27/17) CHORIONIC GONADOTROPIN ASSAY (08/23/13) COMP SCREEN MAMMOGRAM ADD-ON (03/08/16) CT ABD & PELV W/CONTRAST (06/08/15) CT ABDOMEN W/O DYE (04/14/16) CULTURE AEROBIC IDENTIFY (06/21/16) CULTURE OTHR SPECIMN AEROBIC (06/21/16) CULTURE SCREEN ONLY (01/01/16) ELECTROCARDIOGRAM TRACING (10/31/16) BERNABE VAG DNA DIR PROBE (03/27/17) KNEE ARTHROSCOPY/SURGERY (10/31/16) MANUAL THERAPY 1/> REGIONS (03/10/15) METABOLIC PANEL TOTAL CA (10/31/16) MRI BRAIN STEM W/O & W/DYE (07/25/16) MRI JNT OF LWR EXTRE W/O DYE (05/17/17) PT EVALUATION (03/10/15) ROUTINE VENIPUNCTURE (10/31/16) SMEAR WET MOUNT SALINE/INK (08/23/13) STREP A AG IA (01/01/16) THERAPEUTIC EXERCISES (03/19/15) TISSUE EXAM BY PATHOLOGIST (07/23/13) TRANSVAGINAL US NON-OB (09/17/14) TRICHOMONAS VAGIN DIR PROBE (03/27/17) ULTRASOUND BREAST LIMITED (04/04/17) URINALYSIS AUTO W/SCOPE (09/11/14) URINE CULTURE/COLONY COUNT (04/12/17) X-RAY EXAM KNEE 4 OR MORE (02/15/16) X-RAY EXAM L-S SPINE 2/3 VWS (01/26/15) (1) GERD (gastroesophageal reflux disease) SNOMED Code(s): 038429241 Code(s): K21.9 - GASTRO-ESOPHAGEAL REFLUX DISEASE WITHOUT ESOPHAGITIS Current Visit: Yes Qualifiers: Esophagitis presence: without esophagitis Qualified Code(s): K21.9 - Gastro -esophageal reflux disease without esophagitis (2) HTN (hypertension) SNOMED Code(s): 63810707 Code(s): I10 - ESSENTIAL (PRIMARY) HYPERTENSION Current Visit: Yes Qualifiers: Hypertension type: essential hypertension Qualified Code(s): I10 - Essential (primary) hypertension (3) Hypothyroidism SNOMED Code(s): 59403471 Code(s): E03.9 - HYPOTHYROIDISM, UNSPECIFIED Current Visit: Yes (4) Pseudohyperparathyroidism SNOMED Code(s): 327864433 Code(s): E20.1 - PSEUDOHYPOPARATHYROIDISM Current Visit: Yes (5) Primary aldosteronism Current Visit: Yes (6) Anxiety SNOMED Code(s): 84897815 Code(s): F41.9 - ANXIETY DISORDER, UNSPECIFIED Current Visit: Yes (7) Depression SNOMED Code(s): 98793685 Code(s): F32.9 - MAJOR DEPRESSIVE DISORDER, SINGLE EPISODE, UNSPECIFIED Current Visit: Yes Problem List Initiated/Reviewed/Updated: Yes My Orders Last 24 Hours: My Active Orders 07/11/17 05:11 BMP [BASIC METABOLIC PANEL,BMP] [CHEM] AM 07/12/17 05:11 BMP [BASIC METABOLIC PANEL,BMP] [CHEM] AM 07/13/17 05:11 BMP [BASIC METABOLIC PANEL,BMP] [CHEM] AM Plan: This 57 year old female admitted for L total knee with pmh of primary hyperaldosteronism, HTN, pseudohyperparathyroidism, recent NEREIDA and hypercalcemia 1. L TKA: Per Orthopedics. Nauseated this morning, Ortho is handling narcotics and nausea. Recommend keeping IVFs due to bump in Cr and due to N/V, she may be slightly dehydrated. 2. HTN: Stable, continue Losartan. 3. Primary hyperaldosteronism: Stable, continue Spironolactone. Secondary to L adrenal adenoma, aldosterone producing. K+ stable. 4. Pseudohyperparathyroidism Type 1B : Recent hypercalcemia and NEREIDA. Today BUN 25 and Cr 1.41, slight increased from yesterday, did receive one dose of Toradol. Ca 9.2 today. Continue to monitor and encourage hydration. 5. Anxiety/depression: Stable. Continue Wellbutrin and Lexapro. VTE prophylaxis: Recommend when deemed appropriate by Ortho. ASA BID currently ordered. SCDs.
[2017-07-11] MEDS: Escitalopram 10 MG Tab PO SCH (10:05)
[2017-07-11] MEDS: Spironolactone 25 MG Tab PO SCH (10:05)
[2017-07-11] MEDS: Lansoprazole 30 MG Orally Disintegrating Tab.CR PO SCH (10:05)
[2017-07-11] MEDS: Docusate Sodium 100 MG Cap PO SCH ×2 (10:05→20:33)
[2017-07-11] MEDS: buPROPion 150 MG Tab.ER PO SCH (10:05)
[2017-07-11] MEDS: oxyCODONE ER 20 MG TAB.ER PO SCH (10:07)
[2017-07-11] MEDS: Aspirin 325 MG Tab PO SCH ×2 (10:07→20:33)
[2017-07-11] MEDS: Mirabegron [Myrbetriq] 50 MG PO SCH (10:10)
--- NOTE | 2017-07-11 11:32 | PCM48HPAN ---
Post Anesthesia Note - EVALUATION WITHIN 48HRS OF ANESTHETIC Vital Signs in Normal Range: Yes Patient Participated in Evaluation: No (pt in chair sleeping) Respiratory Function Stable: Yes Airway Patent: Yes Cardiovascular Function Stable: Yes Hydration Status Stable: Yes Pain Control Satisfactory: Yes Nausea and Vomiting Control Satisfactory: Yes Mental Status Recovered: Yes Resp Rate: 16 Blood Pressure: 102/59
[2017-07-11] MEDS: Famotidine 20 MG Tab PO SCH (14:59)
[2017-07-11] MEDS: Lactated Ringers 1,000 ML IV SCH (16:11)
--- NOTE | 2017-07-11 17:15 | PCM.SURGPN ---
- General Info Date of Service: 07/11/17 POD#: 1 Functional Status: Reports: Pain Controlled - Review of Systems General: Reports: No Symptoms Gastrointestinal: Reports: Nausea. Denies: Vomiting Musculoskeletal: Reports: Joint Pain Systems Review Comment:: Patient seen and examined at 1300. She was resting in bed. She states she did have some nausea this morning, however this seems to be improving. She was quite somnolent earlier. She feels she has improved with her alertness. Her pain continues to be bothersome. She was recently given morphine for pain control. She was up with physical therapy earlier this morning. She denies distal paralysis or paresthesias. - Patient Data Vitals - Most Recent: Last Vital Signs Temp 100.2 F 07/11/17 12:00 Pulse 89 07/11/17 12:00 Resp 16 07/11/17 12:00 BP 144/68 H 07/11/17 12:00 Pulse Ox 91 L 07/11/17 12:00 Weight - Most Recent: 99.79 kg Lab Results Last 24 Hrs: Laboratory Results - last 24 hr 07/11/17 07/11/17 Range/Units 05:00 05:00 Hgb 11.4 L (12.0-16.0) g/dL Hct 36.3 (36.0-46.0) % Sodium 136 (136-145) mmol/L Potassium 5.1 (3.5-5.1) mmol/L Chloride 106 (98-107) mmol/L Carbon Dioxide 25.3 (21.0-32.0) mmol/L BUN 25 H (7.0-18.0) mg/dL Creatinine 1.4 H (0.6-1.0) mg/dL Est Cr Clr Drug Dosing 36.67 mL/min Estimated GFR (MDRD) 38.8 ml/min Glucose 130 H (74-106) mg/dL Calcium 9.2 (8.5-10.1) mg/dL Med Orders - Current: Current Medications Al Hydroxide/Mg Hydroxide (Mag-Al Plus) 30 ml PO Q4H PRN PRN Reason: Indigestion Aspirin (Aspirin) 325 mg PO BID [facility] Last Admin: 07/11/17 10:07 Dose: 325 mg Bisacodyl (Dulcolax) 10 mg RECTAL DAILY PRN PRN Reason: Constipation Bupropion HCl (Wellbutrin Xl) 150 mg PO DAILY [facility] Last Admin: 07/11/17 10:05 Dose: 150 mg Diphenhydramine HCl (Benadryl) 25 mg IVPUSH Q4H PRN PRN Reason: Itching Docusate Sodium (Colace) 100 mg PO BID [facility] Last Admin: 07/11/17 10:05 Dose: 100 mg Escitalopram Oxalate (Lexapro) 10 mg PO DAILY [facility] Last Admin: 07/11/17 10:05 Dose: 10 mg Famotidine (Pepcid) 40 mg IVPUSH ONARRIVE [facility] Last Admin: 07/10/17 07:27 Dose: 40 mg Famotidine (Pepcid) 40 mg PO DAILY [facility] Last Admin: 07/11/17 14:59 Dose: 40 mg Cefazolin Sodium/Dextrose 2 gm (/ Premix) 50 mls @ 100 mls/hr IV ONCALL [facility] Ropivacaine 49.25 ml/Ketorolac Tromethamine 30 mg/Epinephrine HCl 0.5 mg/ Clonidine HCl 80 mcg/ Sodium Chloride 100 mls @ 50 mls/sec INJECT ASDIRECTED [facility] Lactated Ringer's (Ringers, Lactated) 1,000 mls @ 100 mls/hr IV ASDIRECTED [facility] Last Admin: 07/11/17 16:11 Dose: 100 mls/hr Tranexamic Acid 4,000 mg/ (Sodium Chloride) 140 mls @ 600 mls/hr IV ASDIRECTED [facility] Ketorolac Tromethamine (Toradol) 30 mg IVPUSH ONARRIVE [facility] Last Admin: 07/10/17 07:28 Dose: 30 mg Lansoprazole (Prevacid Solutab) 30 mg PO DAILY [facility] Last Admin: 07/11/17 10:05 Dose: 30 mg Losartan Potassium (Cozaar) 50 mg PO BEDTIME [facility] Last Admin: 07/10/17 21:32 Dose: Not Given Morphine Sulfate (Morphine) 1 - 3 mg IVPUSH Q3H PRN PRN Reason: Pain Last Admin: 07/11/17 13:09 Dose: 2 mg Ondansetron HCl (Zofran) 4 mg IVPUSH Q6H PRN PRN Reason: NAUSEA Last Admin: 07/11/17 09:30 Dose: 4 mg Oxycodone HCl (Oxycontin) 20 mg PO ONARRIVE [facility] Last Admin: 07/10/17 07:26 Dose: 20 mg Oxycodone/Acetaminophen (Percocet 325-5 Mg) 1 - 2 tab PO Q4H PRN PRN Reason: Pain Mirabegron [ (Myrbetriq] 50 Mg) 1 each PO DAILY [facility] Last Admin: 07/11/17 10:10 Dose: 1 each Scopolamine (Transderm-Scop) 1.5 mg TRDERM ONARRIVE [facility] Last Admin: 07/10/17 07:26 Dose: 1.5 mg Spironolactone (Aldactone) 50 mg PO DAILY [facility] Last Admin: 07/11/17 10:05 Dose: 50 mg Discontinued Medications Ephedrine Sulfate (Ephedrine Sulfate) Confirm Administered Dose 50 mg .ROUTE .STK-MED ONE Stop: 07/10/17 07:29 Fentanyl (Sublimaze) Confirm Administered Dose 100 mcg .ROUTE .STK-MED ONE Stop: 07/10/17 07:26 Fentanyl (Sublimaze) 50 mcg IVPUSH Q5M PRN PRN Reason: Pain (severe 7-10) Stop: 07/11/17 10:28 Acetaminophen 1,000 mg/ Premix 100 mls @ 400 mls/hr IV Q6H [facility] Stop: 07/11/17 01:14 Last Admin: 07/11/17 01:55 Dose: 400 mls/hr Cefazolin Sodium/Dextrose 2 gm (/ Premix) 50 mls @ 100 mls/hr IV Q8H [facility] Stop: 07/11/17 00:59 Last Admin: 07/11/17 01:18 Dose: 100 mls/hr Ketorolac Tromethamine (Toradol) Confirm Administered Dose 30 mg .ROUTE .STK- MED ONE Stop: 07/10/17 07:29 Ketorolac Tromethamine (Toradol) 15 mg IVPUSH Q6H [facility] Stop: 07/11/17 09:00 Lidocaine (Xylocaine-Mpf 2%) Confirm Administered Dose 10 ml .ROUTE .STK-MED ONE Stop: 07/10/17 07:25 Midazolam HCl (Versed 1 Mg/Ml) Confirm Administered Dose 2 mg .ROUTE .STK-MED ONE Stop: 07/10/17 07:26 Morphine Sulfate (Morphine Car Mechanic Helper 30 Mg In 30 Ml) 30 mg IV ASDIRECTED [facility]; Protocol Stop: 07/11/17 08:00 Last Admin: 07/10/17 11:00 Dose: 30 mg Ondansetron HCl (Zofran) Confirm Administered Dose 4 mg .ROUTE .STK-MED ONE Stop: 07/10/17 07:29 Ondansetron HCl (Zofran) Confirm Administered Dose 4 mg .ROUTE .STK-MED ONE Stop: 07/11/17 09:15 Last Admin: 07/11/17 10:06 Dose: 4 mg Ondansetron HCl (Zofran) 4 mg IVPUSH Q6H PRN PRN Reason: Nausea/Vomiting Oxycodone HCl (Oxycodone) 5 - 10 mg PO Q4H PRN PRN Reason: Pain Stop: 07/11/17 08:00 Last Admin: 07/11/17 02:03 Dose: 10 mg Oxycodone HCl (Oxycontin) 20 mg PO BID [facility] Last Admin: 07/11/17 10:07 Dose: Not Given Propofol (Diprivan 20 Ml) Confirm Administered Dose 400 mg .ROUTE .STK-MED ONE Stop: 07/10/17 07:26 Propofol (Diprivan 20 Ml) Confirm Administered Dose 200 mg .ROUTE .STK-MED ONE Stop: 07/10/17 09:12 Tranexamic Acid (Cyklokapron) Confirm Administered Dose 4,000 mg .ROUTE .STK- MED ONE Stop: 07/10/17 07:16 - Exam Wound/Incisions: Dressing Dry and Intact General: Alert, Oriented Neurological: No New Focal Deficit Psy/Mental Status: Alert, Normal Affect, Normal Mood Physical Findings Comment:: Exam of the left lower extremity shows a dressing to be dry and intact. She has no calf tenderness. AT/EHL/gastroc 5/5. Sensation grossly intact. DP/PT pulses 2+. - Problem List Review Problem List Initiated/Reviewed/Updated: Yes - My Orders Last 24 Hours: Active Orders 24 hr Category Date Time Status Remove Urinary Catheter [Urinary Catheter Removal] [RC] Care 07/11/17 09:52 Active Per Unit Routine BMP [BASIC METABOLIC PANEL,BMP] [CHEM] AM Lab 07/12/17 05:11 Ordered BMP [BASIC METABOLIC PANEL,BMP] [CHEM] AM Lab 07/13/17 05:11 Ordered HEMOGLOBIN/HEMATOCRIT,HH [HEME] DAILY Lab 07/12/17 06:00 Ordered Acetaminophen/oxyCODONE [Percocet 325-5 MG] Med 07/11/17 08:00 Active 1 - 2 tab PO Q4H PRN Aspirin Med 07/11/17 09:00 Active 325 mg PO BID Docusate Sodium [Colace] Med 07/10/17 21:00 Active 100 mg PO BID Famotidine [Pepcid] Med 07/11/17 09:00 Active 40 mg PO DAILY Losartan [Cozaar] Med 07/10/17 21:00 Active 50 mg PO BEDTIME Morphine Med 07/11/17 08:00 Active 1 - 3 mg IVPUSH Q3H PRN Ondansetron [Zofran] Med 07/11/17 09:38 Active 4 mg IVPUSH Q6H PRN Medication Orders Al Hydroxide/Mg Hydroxide (Mag-Al Plus) 30 ml PO Q4H PRN PRN Reason: Indigestion Aspirin (Aspirin) 325 mg PO BID [facility] Last Admin: 07/11/17 10:07 Dose: 325 mg Bisacodyl (Dulcolax) 10 mg RECTAL DAILY PRN PRN Reason: Constipation Bupropion HCl (Wellbutrin Xl) 150 mg PO DAILY [facility] Last Admin: 07/11/17 10:05 Dose: 150 mg Admin: 07/10/17 12:34 Dose: Not Given Diphenhydramine HCl (Benadryl) 25 mg IVPUSH Q4H PRN PRN Reason: Itching Docusate Sodium (Colace) 100 mg PO BID [facility] Last Admin: 07/11/17 10:05 Dose: 100 mg Admin: 07/10/17 21:22 Dose: 100 mg Escitalopram Oxalate (Lexapro) 10 mg PO DAILY [facility] Last Admin: 07/11/17 10:05 Dose: 10 mg Admin: 07/10/17 12:34 Dose: Not Given Famotidine (Pepcid) 40 mg IVPUSH ONARRIVE [facility] Last Admin: 07/10/17 07:27 Dose: 40 mg Famotidine (Pepcid) 40 mg PO DAILY [facility] Last Admin: 07/11/17 14:59 Dose: 40 mg Cefazolin Sodium/Dextrose 2 gm (/ Premix) 50 mls @ 100 mls/hr IV ONCALL [facility] Ropivacaine 49.25 ml/Ketorolac Tromethamine 30 mg/Epinephrine HCl 0.5 mg/ Clonidine HCl 80 mcg/ Sodium Chloride 100 mls @ 50 mls/sec INJECT ASDIRECTED [facility] Lactated Ringer's (Ringers, Lactated) 1,000 mls @ 100 mls/hr IV ASDIRECTED [facility] Last Admin: 07/11/17 16:11 Dose: 100 mls/hr Infusion: 07/11/17 05:03 Dose: 100 mls/hr Admin: 07/10/17 19:03 Dose: 100 mls/hr Infusion: 07/10/17 17:25 Dose: 100 mls/hr Admin: 07/10/17 07:25 Dose: 100 mls/hr Tranexamic Acid 4,000 mg/ (Sodium Chloride) 140 mls @ 600 mls/hr IV ASDIRECTED [facility] Ketorolac Tromethamine (Toradol) 30 mg IVPUSH ONARRIVE [facility] Last Admin: 07/10/17 07:28 Dose: 30 mg Lansoprazole (Prevacid Solutab) 30 mg PO DAILY [facility] Last Admin: 07/11/17 10:05 Dose: 30 mg Admin: 07/10/17 12:34 Dose: Not Given Losartan Potassium (Cozaar) 50 mg PO BEDTIME [facility] Last Admin: 07/10/17 21:32 Dose: Morphine Sulfate (Morphine) 1 - 3 mg IVPUSH Q3H PRN PRN Reason: Pain Last Admin: 07/11/17 13:09 Dose: 2 mg Ondansetron HCl (Zofran) 4 mg IVPUSH Q6H PRN PRN Reason: NAUSEA Last Admin: 07/11/17 09:30 Dose: 4 mg Oxycodone HCl (Oxycontin) 20 mg PO ONARRIVE [facility] Last Admin: 07/10/17 07:26 Dose: 20 mg Oxycodone/Acetaminophen (Percocet 325-5 Mg) 1 - 2 tab PO Q4H PRN PRN Reason: Pain Mirabegron [ (Myrbetriq] 50 Mg) 1 each PO DAILY [facility] Last Admin: 07/11/17 10:10 Dose: 1 each Admin: 07/10/17 12:34 Dose: Not Given Scopolamine (Transderm-Scop) 1.5 mg TRDERM ONARRIVE [facility] Last Admin: 07/10/17 07:26 Dose: 1.5 mg Spironolactone (Aldactone) 50 mg PO DAILY [facility] Last Admin: 07/11/17 10:05 Dose: 50 mg Admin: 07/10/17 12:33 Dose: Not Given - Plan Plan (Free Text/Narrative):: 1. appreciate hospitalist assistance with medical comorbidities 2. continue pain management--encourage po meds 3. slow with PT, continue PT tomorrow 4. plan discharge home tomorrow if patient improves 5. hgb stable
[2017-07-11] MEDS: Losartan 50 MG Tab PO SCH (20:33)
[2017-07-12] MEDS: Lactated Ringers 1,000 ML IV SCH (02:59)
[2017-07-12] MEDS: Aspirin 325 MG Tab PO SCH (08:50)
[2017-07-12] MEDS: Spironolactone 25 MG Tab PO SCH (08:51)
[2017-07-12] MEDS: buPROPion 150 MG Tab.ER PO SCH (08:51)
[2017-07-12] MEDS: Lansoprazole 30 MG Orally Disintegrating Tab.CR PO SCH (08:51)
[2017-07-12] MEDS: Docusate Sodium 100 MG Cap PO SCH (08:51)
[2017-07-12] MEDS: Famotidine 20 MG Tab PO SCH (08:51)
[2017-07-12] MEDS: Escitalopram 10 MG Tab PO SCH (08:51)
--- NOTE | 2017-07-12 09:05 | PCM.SURGPN ---
- General Info Date of Service: 07/12/17 Date of Surgery/Procedure: 07/10/17 POD#: 2 Functional Status: Reports: Pain Controlled, Tolerating Diet. Denies: Ambulating - Review of Systems General: Reports: No Symptoms Cardiovascular: Reports: No Symptoms Genitourinary: Reports: No Symptoms Musculoskeletal: Reports: Leg Pain Systems Review Comment:: pt up to chair for breakfast less nauseated today, tolerating PO intake pain controlled did not participate with PT well yesterday due to somnolence some confusion reported through the evening and night oxycontin was stopped yesterday morning due to nausea pt is concerned she is not receiving home meds, which were resumed post- operatively - Patient Data Vitals - Most Recent: Last Vital Signs Temp 97.8 F 07/12/17 07:51 Pulse 66 07/12/17 07:51 Resp 15 07/12/17 07:51 BP 137/86 07/12/17 07:51 Pulse Ox 95 07/12/17 07:51 Weight - Most Recent: 99.79 kg I&O - Last 24 Hours: Intake & Output 07/11/17 07/12/17 07/12/17 22:59 06:59 14:59 Intake Total 2045 1401 Output Total 426 700 Balance 1619 701 Lab Results Last 24 Hrs: Laboratory Results - last 24 hr 07/11/17 07/11/17 07/12/17 Range/Units 05:00 05:00 05:00 Hgb 11.4 L 10.9 L (12.0-16.0) g/dL Hct 36.3 34.4 L (36.0-46.0) % Sodium 136 (136-145) mmol/L Potassium 5.1 (3.5-5.1) mmol/L Chloride 106 (98-107) mmol/L Carbon Dioxide 25.3 (21.0-32.0) mmol/L BUN 25 H (7.0-18.0) mg/dL Creatinine 1.4 H (0.6-1.0) mg/dL Est Cr Clr Drug Dosing 36.67 mL/min Estimated GFR (MDRD) 38.8 ml/min Glucose 130 H (74-106) mg/dL Calcium 9.2 (8.5-10.1) mg/dL 07/12/17 Range/Units 05:00 Hgb (12.0-16.0) g/dL Hct (36.0-46.0) % Sodium 137 (136-145) mmol/L Potassium 4.4 (3.5-5.1) mmol/L Chloride 104 (98-107) mmol/L Carbon Dioxide 27.8 (21.0-32.0) mmol/L BUN 16 (7.0-18.0) mg/dL Creatinine 1.0 (0.6-1.0) mg/dL Est Cr Clr Drug Dosing 51.34 mL/min Estimated GFR (MDRD) 57.1 ml/min Glucose 130 H (74-106) mg/dL Calcium 9.3 (8.5-10.1) mg/dL Med Orders - Current: Current Medications Al Hydroxide/Mg Hydroxide (Mag-Al Plus) 30 ml PO Q4H PRN PRN Reason: Indigestion Aspirin (Aspirin) 325 mg PO BID [facility] Last Admin: 07/12/17 08:50 Dose: 325 mg Bisacodyl (Dulcolax) 10 mg RECTAL DAILY PRN PRN Reason: Constipation Bupropion HCl (Wellbutrin Xl) 150 mg PO DAILY [facility] Last Admin: 07/12/17 08:51 Dose: 150 mg Diphenhydramine HCl (Benadryl) 25 mg IVPUSH Q4H PRN PRN Reason: Itching Docusate Sodium (Colace) 100 mg PO BID [facility] Last Admin: 07/12/17 08:51 Dose: 100 mg Escitalopram Oxalate (Lexapro) 10 mg PO DAILY [facility] Last Admin: 07/12/17 08:51 Dose: 10 mg Famotidine (Pepcid) 40 mg IVPUSH ONARRIVE [facility] Last Admin: 07/10/17 07:27 Dose: 40 mg Famotidine (Pepcid) 40 mg PO DAILY [facility] Last Admin: 07/12/17 08:51 Dose: 40 mg Cefazolin Sodium/Dextrose 2 gm (/ Premix) 50 mls @ 100 mls/hr IV ONCALL [facility] Ropivacaine 49.25 ml/Ketorolac Tromethamine 30 mg/Epinephrine HCl 0.5 mg/ Clonidine HCl 80 mcg/ Sodium Chloride 100 mls @ 50 mls/sec INJECT ASDIRECTED [facility] Tranexamic Acid 4,000 mg/ (Sodium Chloride) 140 mls @ 600 mls/hr IV ASDIRECTED [facility] Ketorolac Tromethamine (Toradol) 30 mg IVPUSH ONARRIVE [facility] Last Admin: 07/10/17 07:28 Dose: 30 mg Lansoprazole (Prevacid Solutab) 30 mg PO DAILY [facility] Last Admin: 07/12/17 08:51 Dose: 30 mg Losartan Potassium (Cozaar) 50 mg PO BEDTIME [facility] Last Admin: 07/11/17 20:33 Dose: 50 mg Morphine Sulfate (Morphine) 1 - 3 mg IVPUSH Q3H PRN PRN Reason: Pain Last Admin: 07/11/17 13:09 Dose: 2 mg Ondansetron HCl (Zofran) 4 mg IVPUSH Q6H PRN PRN Reason: NAUSEA Last Admin: 07/11/17 09:30 Dose: 4 mg Oxycodone HCl (Oxycontin) 20 mg PO ONARRIVE [facility] Last Admin: 07/10/17 07:26 Dose: 20 mg Oxycodone/Acetaminophen (Percocet 325-5 Mg) 1 - 2 tab PO Q4H PRN PRN Reason: Pain Mirabegron [ (Myrbetriq] 50 Mg) 1 each PO DAILY [facility] Last Admin: 07/11/17 10:10 Dose: 1 each Scopolamine (Transderm-Scop) 1.5 mg TRDERM ONARRIVE [facility] Last Admin: 07/10/17 07:26 Dose: 1.5 mg Spironolactone (Aldactone) 50 mg PO DAILY [facility] Last Admin: 07/12/17 08:51 Dose: 50 mg Discontinued Medications Ephedrine Sulfate (Ephedrine Sulfate) Confirm Administered Dose 50 mg .ROUTE .STK-MED ONE Stop: 07/10/17 07:29 Fentanyl (Sublimaze) Confirm Administered Dose 100 mcg .ROUTE .STK-MED ONE Stop: 07/10/17 07:26 Fentanyl (Sublimaze) 50 mcg IVPUSH Q5M PRN PRN Reason: Pain (severe 7-10) Stop: 07/11/17 10:28 Lactated Ringer's (Ringers, Lactated) 1,000 mls @ 100 mls/hr IV ASDIRECTED [facility] Last Admin: 07/12/17 02:59 Dose: 100 mls/hr Acetaminophen 1,000 mg/ Premix 100 mls @ 400 mls/hr IV Q6H [facility] Stop: 07/11/17 01:14 Last Admin: 07/11/17 01:55 Dose: 400 mls/hr Cefazolin Sodium/Dextrose 2 gm (/ Premix) 50 mls @ 100 mls/hr IV Q8H [facility] Stop: 07/11/17 00:59 Last Admin: 07/11/17 01:18 Dose: 100 mls/hr Ketorolac Tromethamine (Toradol) Confirm Administered Dose 30 mg .ROUTE .STK- MED ONE Stop: 07/10/17 07:29 Ketorolac Tromethamine (Toradol) 15 mg IVPUSH Q6H [facility] Stop: 07/11/17 09:00 Lidocaine (Xylocaine-Mpf 2%) Confirm Administered Dose 10 ml .ROUTE .STK-MED ONE Stop: 07/10/17 07:25 Midazolam HCl (Versed 1 Mg/Ml) Confirm Administered Dose 2 mg .ROUTE .STK-MED ONE Stop: 07/10/17 07:26 Morphine Sulfate (Morphine Switch Adjuster 30 Mg In 30 Ml) 30 mg IV ASDIRECTED [facility]; Protocol Stop: 07/11/17 08:00 Last Admin: 07/10/17 11:00 Dose: 30 mg Ondansetron HCl (Zofran) Confirm Administered Dose 4 mg .ROUTE .STK-MED ONE Stop: 07/10/17 07:29 Ondansetron HCl (Zofran) Confirm Administered Dose 4 mg .ROUTE .STK-MED ONE Stop: 07/11/17 09:15 Last Admin: 07/11/17 10:06 Dose: 4 mg Ondansetron HCl (Zofran) 4 mg IVPUSH Q6H PRN PRN Reason: Nausea/Vomiting Oxycodone HCl (Oxycodone) 5 - 10 mg PO Q4H PRN PRN Reason: Pain Stop: 07/11/17 08:00 Last Admin: 07/11/17 02:03 Dose: 10 mg Oxycodone HCl (Oxycontin) 20 mg PO BID [facility] Last Admin: 07/11/17 10:07 Dose: Not Given Propofol (Diprivan 20 Ml) Confirm Administered Dose 400 mg .ROUTE .STK-MED ONE Stop: 07/10/17 07:26 Propofol (Diprivan 20 Ml) Confirm Administered Dose 200 mg .ROUTE .STK-MED ONE Stop: 07/10/17 09:12 Tranexamic Acid (Cyklokapron) Confirm Administered Dose 4,000 mg .ROUTE .[facility] ONE Stop: 07/10/17 07:16 - Exam Wound/Incisions: No: Drainage, Erythema General: Alert, Oriented Cardiovascular: Regular Rate, Regular Rhythm Extremities: Other (exam LLE - at/ehl/gastroc 5/5, dp 2+, sensation intact distally) Physical Findings Comment:: vss, afeb o2 sats high 90s on 2L NC hgb 10.9 Ca 9.3 BUN 16 - Problem List Review Problem List Initiated/Reviewed/Updated: Yes - My Orders Last 24 Hours: Active Orders 24 hr Category Date Time Status Remove Urinary Catheter [Urinary Catheter Removal] [RC] Care 07/11/17 09:52 Active Per Unit Routine BMP [BASIC METABOLIC PANEL,BMP] [CHEM] AM Lab 07/13/17 05:11 Ordered Aspirin Med 07/11/17 09:00 Active 325 mg PO BID Famotidine [Pepcid] Med 07/11/17 09:00 Active 40 mg PO DAILY Ondansetron [Zofran] Med 07/11/17 09:38 Active 4 mg IVPUSH Q6H PRN Medication Orders Al Hydroxide/Mg Hydroxide (Mag-Al Plus) 30 ml PO Q4H PRN PRN Reason: Indigestion Aspirin (Aspirin) 325 mg PO BID [facility] Last Admin: 07/12/17 08:50 Dose: 325 mg Admin: 07/11/17 20:33 Dose: 325 mg Admin: 07/11/17 10:07 Dose: 325 mg Bisacodyl (Dulcolax) 10 mg RECTAL DAILY PRN PRN Reason: Constipation Bupropion HCl (Wellbutrin Xl) 150 mg PO DAILY [facility] Last Admin: 07/12/17 08:51 Dose: 150 mg Admin: 07/11/17 10:05 Dose: 150 mg Admin: 07/10/17 12:34 Dose: Not Given Diphenhydramine HCl (Benadryl) 25 mg IVPUSH Q4H PRN PRN Reason: Itching Docusate Sodium (Colace) 100 mg PO BID [facility] Last Admin: 07/12/17 08:51 Dose: 100 mg Admin: 07/11/17 20:33 Dose: 100 mg Admin: 07/11/17 10:05 Dose: 100 mg Admin: 07/10/17 21:22 Dose: 100 mg Escitalopram Oxalate (Lexapro) 10 mg PO DAILY [facility] Last Admin: 07/12/17 08:51 Dose: 10 mg Admin: 07/11/17 10:05 Dose: 10 mg Admin: 07/10/17 12:34 Dose: Not Given Famotidine (Pepcid) 40 mg IVPUSH ONARRIVE [facility] Last Admin: 07/10/17 07:27 Dose: 40 mg Famotidine (Pepcid) 40 mg PO DAILY [facility] Last Admin: 07/12/17 08:51 Dose: 40 mg Admin: 07/11/17 14:59 Dose: 40 mg Cefazolin Sodium/Dextrose 2 gm (/ Premix) 50 mls @ 100 mls/hr IV ONCALL [facility] Ropivacaine 49.25 ml/Ketorolac Tromethamine 30 mg/Epinephrine HCl 0.5 mg/ Clonidine HCl 80 mcg/ Sodium Chloride 100 mls @ 50 mls/sec INJECT ASDIRECTED [facility] Tranexamic Acid 4,000 mg/ (Sodium Chloride) 140 mls @ 600 mls/hr IV ASDIRECTED [facility] Ketorolac Tromethamine (Toradol) 30 mg IVPUSH ONARRIVE [facility] Last Admin: 07/10/17 07:28 Dose: 30 mg Lansoprazole (Prevacid Solutab) 30 mg PO DAILY [facility] Last Admin: 07/12/17 08:51 Dose: 30 mg Admin: 07/11/17 10:05 Dose: 30 mg Admin: 07/10/17 12:34 Dose: Not Given Losartan Potassium (Cozaar) 50 mg PO BEDTIME [facility] Last Admin: 07/11/17 20:33 Dose: 50 mg Admin: 07/10/17 21:32 Dose: Morphine Sulfate (Morphine) 1 - 3 mg IVPUSH Q3H PRN PRN Reason: Pain Last Admin: 07/11/17 13:09 Dose: 2 mg Ondansetron HCl (Zofran) 4 mg IVPUSH Q6H PRN PRN Reason: NAUSEA Last Admin: 07/11/17 09:30 Dose: 4 mg Oxycodone HCl (Oxycontin) 20 mg PO ONARRIVE [facility] Last Admin: 07/10/17 07:26 Dose: 20 mg Oxycodone/Acetaminophen (Percocet 325-5 Mg) 1 - 2 tab PO Q4H PRN PRN Reason: Pain Mirabegron [ (Myrbetriq] 50 Mg) 1 each PO DAILY [facility] Last Admin: 07/11/17 10:10 Dose: 1 each Admin: 07/10/17 12:34 Dose: Not Given Scopolamine (Transderm-Scop) 1.5 mg TRDERM ONARRIVE [facility] Last Admin: 07/10/17 07:26 Dose: 1.5 mg Spironolactone (Aldactone) 50 mg PO DAILY [facility] Last Admin: 07/12/17 08:51 Dose: 50 mg Admin: 07/11/17 10:05 Dose: 50 mg Admin: 07/10/17 12:33 Dose: Not Given - Assessment Assessment (Free Text/Narrative):: POD#2 L TKA acute posthemorrhagic anemia - Plan Plan (Free Text/Narrative):: continue pain management continue PT will d/c scopolamine patch and see if her confusion improves reassured patient she is receiving her home medications dressing changed will need to ambulate more independently and consistently more alert prior to considering d/ch to home
[2017-07-12] MEDS: Mirabegron [Myrbetriq] 50 MG PO SCH (09:09)
--- NOTE | 2017-07-12 09:17 | PCM.CONSN ---
- General Info Date of Service: 07/12/17 Admission Dx/Problem (Free Text): Admission Diagnosis/Problem Admission Diagnosis/Problem Replacement of left total knee joint Subjective Update: Sitting up in the chair, still feeling nauseated, but eating and drinking ok. Much more alert today, still appearing slightly drowsy though. No chest pain or SOB. Otherwise doing well besides nausea. Functional Status: Reports: Pain Controlled, Tolerating Diet, Ambulating, Urinating - Review of Systems General: Reports: No Symptoms HEENT: Reports: No Symptoms. Denies: Headaches, Sore Throat, Visual Changes Pulmonary: Reports: No Symptoms. Denies: Shortness of Breath Cardiovascular: Reports: No Symptoms. Denies: Chest Pain Gastrointestinal: Reports: Nausea. Denies: Vomiting Genitourinary: Reports: No Symptoms. Denies: Dysuria, Frequency, Burning Neurological: Reports: No Symptoms. Denies: Confusion Psychiatric: Reports: No Symptoms. Denies: Confusion - Patient Data Vitals - Most Recent: Last Vital Signs Temp 97.8 F 07/12/17 07:51 Pulse 66 07/12/17 07:51 Resp 15 07/12/17 07:51 BP 137/86 07/12/17 07:51 Pulse Ox 95 07/12/17 07:51 Weight - Most Recent: 99.79 kg I&O - Last 24 Hours: Intake & Output 07/11/17 07/12/17 07/12/17 22:59 06:59 14:59 Intake Total 2045 1401 Output Total 426 700 Balance 1619 701 Lab Results Last 24 Hours: Laboratory Results - last 24 hr 07/11/17 07/11/17 07/12/17 Range/Units 05:00 05:00 05:00 Hgb 11.4 L 10.9 L (12.0-16.0) g/dL Hct 36.3 34.4 L (36.0-46.0) % Sodium 136 (136-145) mmol/L Potassium 5.1 (3.5-5.1) mmol/L Chloride 106 (98-107) mmol/L Carbon Dioxide 25.3 (21.0-32.0) mmol/L BUN 25 H (7.0-18.0) mg/dL Creatinine 1.4 H (0.6-1.0) mg/dL Est Cr Clr Drug Dosing 36.67 mL/min Estimated GFR (MDRD) 38.8 ml/min Glucose 130 H (74-106) mg/dL Calcium 9.2 (8.5-10.1) mg/dL 07/12/17 Range/Units 05:00 Hgb (12.0-16.0) g/dL Hct (36.0-46.0) % Sodium 137 (136-145) mmol/L Potassium 4.4 (3.5-5.1) mmol/L Chloride 104 (98-107) mmol/L Carbon Dioxide 27.8 (21.0-32.0) mmol/L BUN 16 (7.0-18.0) mg/dL Creatinine 1.0 (0.6-1.0) mg/dL Est Cr Clr Drug Dosing 51.34 mL/min Estimated GFR (MDRD) 57.1 ml/min Glucose 130 H (74-106) mg/dL Calcium 9.3 (8.5-10.1) mg/dL Med Orders - Current: Current Medications Al Hydroxide/Mg Hydroxide (Mag-Al Plus) 30 ml PO Q4H PRN PRN Reason: Indigestion Aspirin (Aspirin) 325 mg PO BID [facility] Last Admin: 07/12/17 08:50 Dose: 325 mg Bisacodyl (Dulcolax) 10 mg RECTAL DAILY PRN PRN Reason: Constipation Bupropion HCl (Wellbutrin Xl) 150 mg PO DAILY [facility] Last Admin: 07/12/17 08:51 Dose: 150 mg Diphenhydramine HCl (Benadryl) 25 mg IVPUSH Q4H PRN PRN Reason: Itching Docusate Sodium (Colace) 100 mg PO BID [facility] Last Admin: 07/12/17 08:51 Dose: 100 mg Escitalopram Oxalate (Lexapro) 10 mg PO DAILY [facility] Last Admin: 07/12/17 08:51 Dose: 10 mg Famotidine (Pepcid) 40 mg IVPUSH ONARRIVE [facility] Last Admin: 07/10/17 07:27 Dose: 40 mg Famotidine (Pepcid) 40 mg PO DAILY [facility] Last Admin: 07/12/17 08:51 Dose: 40 mg Cefazolin Sodium/Dextrose 2 gm (/ Premix) 50 mls @ 100 mls/hr IV ONCALL [facility] Ropivacaine 49.25 ml/Ketorolac Tromethamine 30 mg/Epinephrine HCl 0.5 mg/ Clonidine HCl 80 mcg/ Sodium Chloride 100 mls @ 50 mls/sec INJECT ASDIRECTED [facility] Tranexamic Acid 4,000 mg/ (Sodium Chloride) 140 mls @ 600 mls/hr IV ASDIRECTED [facility] Ketorolac Tromethamine (Toradol) 30 mg IVPUSH ONARRIVE [facility] Last Admin: 07/10/17 07:28 Dose: 30 mg Lansoprazole (Prevacid Solutab) 30 mg PO DAILY [facility] Last Admin: 07/12/17 08:51 Dose: 30 mg Losartan Potassium (Cozaar) 50 mg PO BEDTIME [facility] Last Admin: 07/11/17 20:33 Dose: 50 mg Morphine Sulfate (Morphine) 1 - 3 mg IVPUSH Q3H PRN PRN Reason: Pain Last Admin: 07/11/17 13:09 Dose: 2 mg Ondansetron HCl (Zofran) 4 mg IVPUSH Q6H PRN PRN Reason: NAUSEA Last Admin: 07/11/17 09:30 Dose: 4 mg Oxycodone HCl (Oxycontin) 20 mg PO ONARRIVE [facility] Last Admin: 07/10/17 07:26 Dose: 20 mg Oxycodone/Acetaminophen (Percocet 325-5 Mg) 1 - 2 tab PO Q4H PRN PRN Reason: Pain Mirabegron [ (Myrbetriq] 50 Mg) 1 each PO DAILY [facility] Last Admin: 07/12/17 09:09 Dose: 1 each Spironolactone (Aldactone) 50 mg PO DAILY [facility] Last Admin: 07/12/17 08:51 Dose: 50 mg Discontinued Medications Ephedrine Sulfate (Ephedrine Sulfate) Confirm Administered Dose 50 mg .ROUTE .STK-MED ONE Stop: 07/10/17 07:29 Fentanyl (Sublimaze) Confirm Administered Dose 100 mcg .ROUTE .STK-MED ONE Stop: 07/10/17 07:26 Fentanyl (Sublimaze) 50 mcg IVPUSH Q5M PRN PRN Reason: Pain (severe 7-10) Stop: 07/11/17 10:28 Lactated Ringer's (Ringers, Lactated) 1,000 mls @ 100 mls/hr IV ASDIRECTED [facility] Last Admin: 07/12/17 02:59 Dose: 100 mls/hr Acetaminophen 1,000 mg/ Premix 100 mls @ 400 mls/hr IV Q6H [facility] Stop: 07/11/17 01:14 Last Admin: 07/11/17 01:55 Dose: 400 mls/hr Cefazolin Sodium/Dextrose 2 gm (/ Premix) 50 mls @ 100 mls/hr IV Q8H [facility] Stop: 07/11/17 00:59 Last Admin: 07/11/17 01:18 Dose: 100 mls/hr Ketorolac Tromethamine (Toradol) Confirm Administered Dose 30 mg .ROUTE .STK- MED ONE Stop: 07/10/17 07:29 Ketorolac Tromethamine (Toradol) 15 mg IVPUSH Q6H [facility] Stop: 07/11/17 09:00 Lidocaine (Xylocaine-Mpf 2%) Confirm Administered Dose 10 ml .ROUTE .STK-MED ONE Stop: 07/10/17 07:25 Midazolam HCl (Versed 1 Mg/Ml) Confirm Administered Dose 2 mg .ROUTE .STK-MED ONE Stop: 07/10/17 07:26 Morphine Sulfate (Morphine Nutrition Services Associate 30 Mg In 30 Ml) 30 mg IV ASDIRECTED [facility]; Protocol Stop: 07/11/17 08:00 Last Admin: 07/10/17 11:00 Dose: 30 mg Ondansetron HCl (Zofran) Confirm Administered Dose 4 mg .ROUTE .STK-MED ONE Stop: 07/10/17 07:29 Ondansetron HCl (Zofran) Confirm Administered Dose 4 mg .ROUTE .STK-MED ONE Stop: 07/11/17 09:15 Last Admin: 07/11/17 10:06 Dose: 4 mg Ondansetron HCl (Zofran) 4 mg IVPUSH Q6H PRN PRN Reason: Nausea/Vomiting Oxycodone HCl (Oxycodone) 5 - 10 mg PO Q4H PRN PRN Reason: Pain Stop: 07/11/17 08:00 Last Admin: 07/11/17 02:03 Dose: 10 mg Oxycodone HCl (Oxycontin) 20 mg PO BID [facility] Last Admin: 07/11/17 10:07 Dose: Not Given Propofol (Diprivan 20 Ml) Confirm Administered Dose 400 mg .ROUTE .STK-MED ONE Stop: 07/10/17 07:26 Propofol (Diprivan 20 Ml) Confirm Administered Dose 200 mg .ROUTE .STK-MED ONE Stop: 07/10/17 09:12 Scopolamine (Transderm-Scop) 1.5 mg TRDERM ONARRIVE [facility] Last Admin: 07/10/17 07:26 Dose: 1.5 mg Tranexamic Acid (Cyklokapron) Confirm Administered Dose 4,000 mg .ROUTE .STK- MED ONE Stop: 07/10/17 07:16 - Exam Quality Assessment: DVT Prophylaxis. No: Supplemental Oxygen General: Alert, Oriented, Cooperative, No Acute Distress Lungs: Clear to Auscultation, Normal Respiratory Effort Cardiovascular: Regular Rate, Regular Rhythm Back Exam: Normal Inspection, Full Range of Motion Extremities: Normal Inspection, Normal Range of Motion, Non-Tender, No Pedal Edema, Normal Capillary Refill Wound/Incisions: Dressing Dry and Intact (Aquacel to L knee intact. ) Neurological: No New Focal Deficit Psy/Mental Status: Alert, Normal Affect, Normal Mood Consult PN Assessment/Plan Procedures: Procedures ASSAY OF FREE THYROXINE (03/27/17) ASSAY OF PROTEIN URINE (03/14/16) ASSAY OF SERUM POTASSIUM (03/28/16) ASSAY THYROID STIM HORMONE (03/27/17) RO DNA DIR PROBE (03/27/17) CHORIONIC GONADOTROPIN ASSAY (08/23/13) COMP SCREEN MAMMOGRAM ADD-ON (03/08/16) CT ABD & PELV W/CONTRAST (06/08/15) CT ABDOMEN W/O DYE (04/14/16) CULTURE AEROBIC IDENTIFY (06/21/16) CULTURE OTHR SPECIMN AEROBIC (06/21/16) CULTURE SCREEN ONLY (01/01/16) ELECTROCARDIOGRAM TRACING (10/31/16) BERNABE VAG DNA DIR PROBE (03/27/17) KNEE ARTHROSCOPY/SURGERY (10/31/16) MANUAL THERAPY 1/> REGIONS (03/10/15) METABOLIC PANEL TOTAL CA (10/31/16) MRI BRAIN STEM W/O & W/DYE (07/25/16) MRI JNT OF LWR EXTRE W/O DYE (05/17/17) PT EVALUATION (03/10/15) ROUTINE VENIPUNCTURE (10/31/16) SMEAR WET MOUNT SALINE/INK (08/23/13) STREP A AG IA (01/01/16) THERAPEUTIC EXERCISES (03/19/15) TISSUE EXAM BY PATHOLOGIST (07/23/13) TRANSVAGINAL US NON-OB (09/17/14) TRICHOMONAS VAGIN DIR PROBE (03/27/17) ULTRASOUND BREAST LIMITED (04/04/17) URINALYSIS AUTO W/SCOPE (09/11/14) URINE CULTURE/COLONY COUNT (04/12/17) X-RAY EXAM KNEE 4 OR MORE (02/15/16) X-RAY EXAM L-S SPINE 2/3 VWS (01/26/15) (1) GERD (gastroesophageal reflux disease) SNOMED Code(s): 148914916 Code(s): K21.9 - GASTRO-ESOPHAGEAL REFLUX DISEASE WITHOUT ESOPHAGITIS Current Visit: Yes Qualifiers: Esophagitis presence: without esophagitis Qualified Code(s): K21.9 - Gastro -esophageal reflux disease without esophagitis (2) HTN (hypertension) SNOMED Code(s): 50595330 Code(s): I10 - ESSENTIAL (PRIMARY) HYPERTENSION Current Visit: Yes Qualifiers: Hypertension type: essential hypertension Qualified Code(s): I10 - Essential (primary) hypertension (3) Hypothyroidism SNOMED Code(s): 08837508 Code(s): E03.9 - HYPOTHYROIDISM, UNSPECIFIED Current Visit: Yes (4) Pseudohyperparathyroidism SNOMED Code(s): 027393613 Code(s): E20.1 - PSEUDOHYPOPARATHYROIDISM Current Visit: Yes (5) Primary aldosteronism Current Visit: Yes (6) Anxiety SNOMED Code(s): 70344210 Code(s): F41.9 - ANXIETY DISORDER, UNSPECIFIED Current Visit: Yes (7) Depression SNOMED Code(s): 25970195 Code(s): F32.9 - MAJOR DEPRESSIVE DISORDER, SINGLE EPISODE, UNSPECIFIED Current Visit: Yes Problem List Initiated/Reviewed/Updated: Yes My Orders Last 24 Hours: My Active Orders 07/13/17 05:11 BMP [BASIC METABOLIC PANEL,BMP] [CHEM] AM Plan: This 57 year old female admitted for L total knee with pmh of primary hyperaldosteronism, HTN, pseudohyperparathyroidism, recent NEREIDA and hypercalcemia 1. L TKA: Per Orthopedics. Nausea continues this morning. 2. HTN: Stable, continue Losartan. 3. Primary hyperaldosteronism: Stable, continue Spironolactone. Secondary to L adrenal adenoma, aldosterone producing. K+ stable. 4. Pseudohyperparathyroidism Type 1B : Recent hypercalcemia and NEREIDA. Today BUN 16 and Cr 1.0 , will stop IVFs today and encourage PO intake. Ca stable. 5. Anxiety/depression: Stable. Continue Wellbutrin and Lexapro. VTE prophylaxis: Recommend when deemed appropriate by Ortho. ASA BID currently ordered. SCDs.
[2017-07-12 11:08] VITALS: BP 127/65
--- NOTE | 2017-07-13 11:06 | DISCH ---
DATE OF DISCHARGE: 07/12/2017 PRIMARY CARE PHYSICIAN: Steve Malone MD ADMITTING DIAGNOSIS: Degenerative joint disease, left knee, tricompartmental. OTHER MEDICAL DIAGNOSES: 1. Hypertension. 2. Hypothyroidism. 3. Nephrolithiasis. 4. Depression/anxiety. 5. Primary hyperaldosteronism due to left adrenal adenoma. 6. Pseudohypoparathyroidism, type 1 B. DISCHARGE DIAGNOSES: 1. Degenerative joint disease, left knee, tricompartmental. 2. Hypertension. 3. Hypothyroidism. 4. Nephrolithiasis. 5. Depression/anxiety. 6. Primary hyperaldosteronism due to left adrenal adenoma. 7. Pseudohypoparathyroidism, type 1 B. 8. Acute post hemorrhagic anemia. BRIEF HISTORY: Elisa is a 57-year-old female, who has had progressive complaints of left knee pain. She has tried and failed conservative treatment. At that time, surgical treatment was recommended. On July 10, 2017, the patient underwent a left total knee arthroplasty using patient-specific instrumentation done by Dr. Laisha Pepe. This was done under spinal anesthesia with sedation. ESTIMATED BLOOD LOSS: 50 mL. TOURNIQUET TIME: 41 minutes. COMPLICATIONS: There were no known complications. Upon completion of the procedure, the patient was transferred to the PACU and subsequently to Med/Surg postoperative care. HOSPITAL COURSE: Postoperatively, the patient did well. She received 2 doses of antibiotics postoperatively for a total of 24 hours of antibiotic coverage. Hospitalist service followed her through her hospital stay. Physical therapy followed her through her hospital stay. Her pain was controlled with a combination of oral and IV pain medications. Aspirin 325 mg was started on postoperative day #1 as DVT prophylaxis. She did have some nausea and confusion, which resolved with discontinuation of the OxyContin and the scopolamine patch. Her vital signs have been stable. She has been afebrile. Her hemoglobin on the morning of July 12 was 10.9. She is ambulating well with a wheeled walker. She feels comfortable with discharge to home today. DISCHARGE MEDICATIONS: 1. Percocet 5/325. 2. Aspirin 325 mg. 3. Colace 100 mg. DISCHARGE INSTRUCTIONS: 1. Follow up in clinic in 10-14 days from the date of procedure. This appointment has been made for the patient. 2. Outpatient physical therapy 2 or 3 times per week for 4 to 6 weeks. 3. No driving while taking narcotics. 4. Polar Care to the left knee as needed. 5. VINICIUS hose, on in the morning, off in the evening. 6. She is to change her dressing on Sunday, July 16, 2017. She should place a new dressing and leave in place until followup. 7. Okay to shower over the Aquacel dressing. For complete medication reconciliation and discharge instructions, please refer back to the patient's EHR. Should she have questions or concerns prior to followup, she has been advised to return to clinic or call. MARCOS CHAMBERLAIN /[id number]
== END 2017-07-12 16:35 | disposition home or self-care (01) | DRG 470 ==
LOC: MW.SDS 07:07 → MW.MS 12:12
PROVIDERS: ADMIT Orthopaedic Surgery; ATTEND Orthopaedic Surgery
PROC: 0SRD0J9 Replacement of Left Knee Joint with Synthetic Substitute, Cemented, Open Approach (ICD-10-PCS; principal; 2017-07-10)
DX: M17.12 Unilateral primary osteoarthritis, left knee (principal); D62 Acute posthemorrhagic anemia; M94.20 Chondromalacia, unspecified site; M25.762 Osteophyte, left knee; R41.0 Disorientation, unspecified; I10 Essential (primary) hypertension; E03.9 Hypothyroidism, unspecified; N20.0 Calculus of kidney; F41.8 Other specified anxiety disorders; E26.09 Other primary hyperaldosteronism; K21.9 Gastro-esophageal reflux disease without esophagitis; E20.1 Pseudohypoparathyroidism; Z88.8 Allergy status to other drugs, medicaments and biological substances; Z79.899 Other long term (current) drug therapy
CPT/HCPCS: 36415; 73560-26-LT; 73560-LT; 80048; 83735; 85014; 85018; 85025; 86850; 86900; 86901; 88304; 88311; 97110-GP; 97116-GP; 97161-GP; A9270-GY; C1713; C1776; J0171; J0690; J0735; J1885; J2250; J2270; J2274; J2405; J2704; J2795; J3010; J7050; J7120

== ENCOUNTER 2019-10-25 06:42 | Day surgery (SDC) | payer OTHER ==
[~2019-10-25 06:42] MED LIST changes: -Famotidine 20 MG/2 ML SDV IVPUSH SCH; -Ketorolac 30 MG/ML SDV IVPUSH SCH; +Lactated Ringers 1,000 ML IV SCH; -Scopolamine 1.5 MG Transdermal Patch TRDERM SCH; -oxyCODONE ER 20 MG TAB.ER PO SCH
[2019-10-25] MEDS ORDERED: Propofol 200 MG/20 ML SDV ONE ×2 (07:09→07:36)
[2019-10-25] MEDS ORDERED: fentaNYL 100 MCG/2 ML SDV ONE (07:10)
--- NOTE | 2019-10-25 07:12 | PCM.PREANE ---
Preanesthetic Assessment - Anesthesia/Transfusion/Family Hx Anesthesia History: Prior Anesthesia Reaction Type of Anesthesia Reaction: Excessive Nausea/Vomiting Other Type of Anesthesia Reaction Comment: states "I have a hard time coming out of anesthesia" Family History of Anesthesia Reaction: No Transfusion History: No Prior Transfusion(s) - Review of Systems General: No Symptoms Pulmonary: No Symptoms Cardiovascular: No Symptoms Gastrointestinal: No Symptoms Neurological: No Symptoms Other: Reports: None - Physical Assessment NPO Status Date: 10/24/19 Height: 5 ft 3 in Weight: 105.687 kg ASA Class: 2 Mental Status: Alert & Oriented x3 Airway Class: Mallampati = 2 ROM/Head Extension: Full Lungs: Clear to Auscultation, Normal Respiratory Effort Cardiovascular: Regular Rate, Regular Rhythm - Allergies Allergies/Adverse Reactions: Allergies Allergy/AdvReac Type Severity Reaction Status Date / Time hydrocodone Allergy Intermediate Nausea and Verified 10/25/19 07:05 Vomiting oxycodone Allergy Change Verified 10/25/19 07:05 Mental Status Sulfa (Sulfonamide Allergy Nausea and Verified 10/25/19 07:05 Antibiotics) Vomiting - Blood Blood Available: No - Anesthesia Plan Pre-Op Medication Ordered: None - Acknowledgements Anesthesia Type Planned: General Anesthesia Pt an Appropriate Candidate for the Planned Anesthesia: Yes Alternatives and Risks of Anesthesia Discussed w Pt/Guardian: Yes Pt/Guardian Understands and Agrees with Anesthesia Plan: Yes Additional Comments: PMH: MATTI- started on CPAP 1 night ago, HTN, PONV, HTN PLAN: mac if lateral, GET if prone PreAnesthesia Questionnaire HEENT History: Reports: Allergic Rhinitis Cardiovascular History: Reports: Hypertension Respiratory History: Reports: Sleep Apnea Other Respiratory History: will get a CPAP this week Gastrointestinal History: Reports: GERD, Hiatal Hernia Other Gastrointestinal History: occasional acid reflux- takes OTC meds Genitourinary History: Reports: Renal Calculus Other Genitourinary History: hx of passing kidney stones [employer] History: Reports: Musculoskeletal History: Reports: Arthritis Neurological History: Reports: Migraines, Vertigo, Other (See Below) Other Neuro History: hx of motion sickness Psychiatric History: Reports: Depression Endocrine/Metabolic History: Reports: Hypothyroidism, Obesity/BMI 30+, Other (See Below) Other Endocrine/Metabolic History: hx of Pseudohypoparathyroidism Hematologic History: Immunologic History: Reports: None Oncologic (Cancer) History: Reports: None Dermatologic History: Reports: Eczema - Infectious Disease History Infectious Disease History: Reports: None - Past Surgical History Head Surgeries/Procedures: Reports: None GI Surgical History: Reports: Appendectomy, Cholecystectomy, EGD Female Surgical History: Reports: Breast Biopsy, Section Musculoskeletal Surgical History: Reports: Knee Replacement - SUBSTANCE USE Smoking Status *Q: Never Smoker Recreational Drug Use History: No - HOME MEDS Home Medications: Home Meds Escitalopram Oxalate 10 mg PO DAILY 10/20/16 [History] Losartan Potassium 50 mg PO BEDTIME 10/20/16 [History] buPROPion HCL [Wellbutrin Xl] 150 mg PO DAILY 10/20/16 [History] Ibuprofen 200 mg PO ASDIRECTED PRN 10/21/19 [History] Levothyroxine Sodium [Synthroid] 75 mcg PO QAM 10/21/19 [History] Melatonin 5 mg PO BEDTIME PRN 10/21/19 [History] Loratadine/Pseudoephedrine [Claritin-D 12 Hour] PRN 10/25/19 [History] - CURRENT (IN HOUSE) MEDS Current Meds: Current Medications Lactated Ringer's (Ringers, Lactated) 1,000 mls @ 125 mls/hr IV ASDIRECTED [facility]
[2019-10-25] MEDS ORDERED: Bupivacaine 0.5% 10 ML SDV ONE (07:28)
[2019-10-25] MEDS ORDERED: Lidocaine 1% 20 ML MDV ONE (07:29)
[2019-10-25] MEDS ORDERED: Atropine 0.1 MG/ML 10 ML Syringe IVPUSH PRN ×2 (08:32)
[2019-10-25] MEDS ORDERED: 50% Dextrose in Water 50 ML Syringe IVPUSH PRN (08:32)
[2019-10-25] MEDS ORDERED: fentaNYL 100 MCG/2 ML SDV IVPUSH PRN (08:32)
[2019-10-25] MEDS ORDERED: Albuterol 0.083% 2.5 MG/3 ML Neb Soln NEB PRN (08:32)
[2019-10-25] MEDS ORDERED: Naloxone 0.4 MG/ML Syringe IVPUSH PRN (08:32)
[2019-10-25] MEDS ORDERED: EPINEPHrine 1:10,000 1 MG/10 ML Syringe IVPUSH PRN (08:32)
--- NOTE | 2019-10-25 08:49 | PCM.OPNOTE ---
- General Post-Op/Procedure Note Date of Surgery/Procedure: 10/25/19 Operative Procedure(s): Excision 2 cm inflamed upper back mass with layered 6 cm closure Pre Op Diagnosis: Inflamed upper back mass, probable inflamed inclusion cyst Post-Op Diagnosis: Same Anesthesia Technique: Local, MAC (ASA II) Primary Surgeon: Brenden Teixeira Coding Quality Analyst: Tamara Wild Fluid Replacement, Intraop: 600 EBL in mLs: 5 Condition: Good Free Text/Narrative:: DICTATION [id number] CPT CODE [id number]/[id number]
[2019-10-25 08:53] VITALS: PULSE 61
[2019-10-25] MEDS ORDERED: Lactated Ringers 1,000 ML IV SCH (09:00)
[2019-10-25 10:33] VITALS: BP 156/83
--- NOTE | 2019-10-25 10:47 | PCM48HPAN ---
Post Anesthesia Note - EVALUATION WITHIN 48HRS OF ANESTHETIC Vital Signs in Normal Range: Yes Patient Participated in Evaluation: Yes Respiratory Function Stable: Yes Airway Patent: Yes Cardiovascular Function Stable: Yes Hydration Status Stable: Yes Pain Control Satisfactory: Yes Nausea and Vomiting Control Satisfactory: Yes Mental Status Recovered: Yes Vital Signs: Last Vital Signs Temp 96.8 F L 10/25/19 09:00 Pulse 61 10/25/19 09:30 Resp 15 10/25/19 09:30 BP 156/83 H 10/25/19 09:30 Pulse Ox 94 L 10/25/19 09:30
--- NOTE | 2019-10-25 10:47 | PCM.POSTAN ---
POST ANESTHESIA ASSESSMENT - MENTAL STATUS Mental Status: Alert, Oriented - VITAL SIGNS Vital Signs: Last Vital Signs Temp 96.8 F L 10/25/19 09:00 Pulse 61 10/25/19 09:30 Resp 15 10/25/19 09:30 BP 156/83 H 10/25/19 09:30 Pulse Ox 94 L 10/25/19 09:30 - RESPIRATORY Respiratory Status: Respiratory Rate WNL, Airway Patent, O2 Saturation Stable - CARDIOVASCULAR CV Status: Pulse Rate WNL, Blood Pressure Stable - GASTROINTESTINAL GI Status: No Symptoms - POST OP HYDRATION Hydration Status: Adequate & Stable
--- NOTE | 2019-10-25 13:26 | OR ---
SURGEON: Brenden Teixeira M.D. DATE OF PROCEDURE: 10/25/2019 OPERATION PERFORMED: Excision of 2 cm upper back mass with layered 6-cm closure. PRIMARY SURGEON: Brenden Teixeira MD. ANESTHESIA: Local MAC. ASA CLASSIFICATION: II. PREOPERATIVE DIAGNOSIS: Recurrent inflamed back mass. POSTOPERATIVE DIAGNOSIS: Recurrent inflamed back mass. MOTORIZED SQUAD CAPTAIN: podiatrist assistant: MARY JANE Neal student. ASA CLASSIFICATION: II. ESTIMATED BLOOD LOSS: 5 mL. INTRAOPERATIVE FLUID REPLACEMENT: 600 mL of crystalloid. DESCRIPTION OF PROCEDURE: The patient was taken to the operating room and placed on the operating table on the beanbag in the right lateral decubitus position. Monitored anesthesia care and sedation were provided. The surgical site was prepped with Betadine solution. Sterile drapes were applied. Lesa-incisional local infiltration was accomplished with 10 mL of 1% plain xylocaine and 10 mL of 0.5% plain Marcaine. Elliptical skin incision was made and deepened through the subcutaneous tissue. Hemostasis was obtained with the use of electrocautery, and the erythematous area and underlying mass were excised using electrocautery. Bleeding sites were electrocoagulated. Wound was inspected for hemostasis and no other bleeding was noted. The wound was then closed in 2 layers approximating the subcutaneous tissue with interrupted 3-0 Vicryl and the skin with interrupted 3-0 nylon. Sterile Tegaderm pad was placed as a dressing. Sponge, needle, and instrument counts were all correct. The patient tolerated the procedure well. She was placed back in the supine position and transferred to the transfer cart and taken to recovery room in stable condition. REYNA / CINTIA /[id number]
== END 2019-10-25 09:43 | disposition home or self-care (01) ==
LOC: MW.SDS 06:42
PROVIDERS: ATTEND Surgery
DX: L08.89 Other specified local infections of the skin and subcutaneous tissue (principal); I10 Essential (primary) hypertension; E66.9 Obesity, unspecified; Z88.8 Allergy status to other drugs, medicaments and biological substances; Z88.2 Allergy status to sulfonamides; Z79.899 Other long term (current) drug therapy; Z68.41 Body mass index [BMI] 40.0-44.9, adult
CPT/HCPCS: 00300; 88305; J2001; J2704; J3010; J3490; J7120

== ENCOUNTER 2022-02-11 08:05 | Day surgery (SDC) | payer MEDICAID, OTHER ==
[2022-02-11] MEDS ORDERED: Propofol 200 MG/20 ML SDV ONE (10:04)
[2022-02-11] MEDS ORDERED: Lidocaine 2% 5 ML SDV ONE (10:04)
[2022-02-11] MEDS ORDERED: fentaNYL 100 MCG/2 ML SDV ONE (10:04)
[2022-02-11] MEDS ORDERED: Lactated Ringers 1,000 ML IV SCH (11:00)
[2022-02-11 11:22] VITALS: BP 114/42; PULSE 61
== END 2022-02-11 11:40 | disposition home or self-care (01) ==
LOC: MW.SDS 08:05
PROVIDERS: ATTEND Surgery
DX: Z12.11 Encounter for screening for malignant neoplasm of colon (principal); K57.30 Diverticulosis of large intestine without perforation or abscess without bleeding; E66.9 Obesity, unspecified; I10 Essential (primary) hypertension; E03.9 Hypothyroidism, unspecified; F32.A Depression, unspecified; Z90.49 Acquired absence of other specified parts of digestive tract; Z98.890 Other specified postprocedural states; Z88.2 Allergy status to sulfonamides; Z88.5 Allergy status to narcotic agent; Z79.899 Other long term (current) drug therapy; Z79.890 Hormone replacement therapy
CPT/HCPCS: 45378; J2704; J3010; J7120

== ENCOUNTER 2022-04-19 11:42 | Emergency (ER) | payer OTHER ==
[2022-04-19] MEDS ORDERED: Sodium Chloride 0.9% 2.5 ML Syringe FLUSH PRN (12:42)
[2022-04-19] MEDS ORDERED: Sodium Chloride 0.9% 10 ML Syringe FLUSH PRN (12:42)
[2022-04-19] MEDS ORDERED: Sodium Chloride 0.9% 1,000 ML IV ONE (12:43)
[2022-04-19] MEDS ORDERED: Ketorolac 30 MG/ML SDV IVPUSH ONE (12:43)
[2022-04-19 13:21] LABS: CORONAVIRUS COVID-19 NAA NEGATIVE (NEGATIVE); INFLUENZA A NAA NEGATIVE (NEGATIVE); INFLUENZA B NAA NEGATIVE (NEGATIVE)
[2022-04-19 13:35] LABS: CARBON DIOXIDE,CO2 23.5 mmol/L (21.0-32.0); POTASSIUM,K 3.7 mmol/L (3.5-5.1)
[2022-04-19] MEDS ORDERED: cefTRIAXone 2 GM in Premix Bag 1 BAG IV ONE (15:48)
[2022-04-19] MEDS ORDERED: Piperacillin/Tazobactam 4.5 GM in Sodium Chloride 0.9% 100 ML IV ONE (16:50)
[2022-04-20] MEDS ORDERED: Acetaminophen 325 MG Tab PO ONE ×2 (00:42→12:01)
[2022-04-20 11:08] VITALS: BP 129/50
[2022-04-20 13:50] VITALS: PULSE 64
[2022-04-20 16:10] LABS: POTASSIUM,K 3.9 mmol/L (3.5-5.1)
[2022-04-20] MEDS ORDERED: Piperacillin/Tazobactam 4.5 GM in Sodium Chloride 0.9% 100 ML IV ONE (19:38)
== END 2022-04-20 21:00 ==
LOC: MW.ED 11:42
DX: J18.9 Pneumonia, unspecified organism (principal); D61.818 Other pancytopenia; I10 Essential (primary) hypertension; E03.9 Hypothyroidism, unspecified; E66.9 Obesity, unspecified; Z79.82 Long term (current) use of aspirin; Z20.822 Contact with and (suspected) exposure to COVID-19; Z88.5 Allergy status to narcotic agent; Z88.2 Allergy status to sulfonamides; Z79.899 Other long term (current) drug therapy; Z68.41 Body mass index [BMI] 40.0-44.9, adult
CPT/HCPCS: 0240U; 36415; 36430; 71045; 74177; 80053; 81003; 82009; 83615; 83735; 83880; 84484; 84550; 85025; 85379; 85384; 85610; 85730; 86850; 86900; 86901; 86920; 87040; 87086; 93005; 96361; 96365; 96367; 96375; 99285; A9270; J0696; J1885; J2543; J3490; J7030; J7050; P9016; 93010

== ENCOUNTER 2024-07-20 14:49 | Emergency (ER) | payer OTHER ==
[2024-07-20] MEDS ORDERED: Sodium Chloride 0.9% 2.5 ML Syringe FLUSH PRN (15:22)
[2024-07-20] MEDS ORDERED: Sodium Chloride 0.9% 10 ML Syringe FLUSH PRN (15:22)
[2024-07-20] MEDS: Prochlorperazine 10 MG/2 ML SDV IVPUSH STA (15:36)
[2024-07-20] MEDS: Sodium Chloride 0.9% 1,000 ML IV STA ×3 (15:36→17:51)
[2024-07-20] MEDS: Ondansetron 4 MG/2 ML SDV IVPUSH STA (15:43)
[2024-07-20 15:45] LABS: BASOPHILS ABSOLUTE AUTO 0.02 K/uL (0.00-0.20); BASOPHILS PERCENT AUTO 0.3 % (0.0-1.0); EOSINOPHILS ABSOLUTE AUTO 0.01 K/uL (0.00-0.45); EOSINOPHILS PERCENT AUTO 0.2 % (0.0-6.0); HEMATOCRIT 48.8 % (37.0-47.0); HEMOGLOBIN 16.6 g/dL (12.0-16.0); IMMATURE GRAN ABSOLUTE AUTO 0.02 K/uL (0.00-0.05); IMMATURE GRAN PERCENT AUTO 0.3 % (0.0-0.4); LYMPHOCYTES ABSOLUTE AUTO 1.71 K/uL (1.00-4.80); LYMPHOCYTES PERCENT AUTO 27.4 % (24.0-44.0); MEAN CORPUSCULAR HEMOGLOBIN 33.7 pg (28.0-32.0); MEAN PLATELET VOLUME 9.3 fL (9.4-12.3); MONOCYTES ABSOLUTE AUTO 0.69 K/uL (0.00-0.80); NEUTROPHILS PERCENT AUTO 60.8 % (41.0-71.0); PLATELET COUNT,PLT 172 K/uL (150-400); RED BLOOD CELL COUNT 4.93 M/uL (4.10-5.30); WHITE BLOOD CELL COUNT,WBC 6.25 K/uL (3.9-11.3)
[2024-07-20 16:06] LABS: A/G RATIO 1.1 (0.9-1.6); ALBUMIN 4.2 g/dL (3.4-5.0); BILIRUBIN TOTAL 0.6 mg/dL (0.2-1.0); CALCIUM 10.3 mg/dL (8.5-10.1); CARBON DIOXIDE,CO2 23.8 mmol/L (21.0-32.0); CREATININE 1.5 mg/dL (0.6-1.0); EST CRCL DRUG DOSING (CG) 31.34 mL/min; MAGNESIUM 2.2 mg/dL (1.8-2.4); POTASSIUM,K 3.3 mmol/L (3.5-5.1); PROTEIN TOTAL,TP 8.1 g/dL (6.4-8.2)
[2024-07-20 17:03] LABS: APPEARANCE,URINE CLEAR; BILIRUBIN,URINE NEGATIVE (NEGATIVE); COLOR,URINE YELLOW; GLUCOSE,URINE NEGATIVE (NEGATIVE); KETONES,URINE NEGATIVE (NEGATIVE); LEUKOCYTE ESTERASE,URINE TRACE (NEGATIVE); NITRITE,URINE POSITIVE (NEGATIVE); OCCULT BLOOD,URINE NEGATIVE (NEGATIVE); PH,URINE 5.5 (5.0-8.0); PROTEIN,URINE NEGATIVE (NEGATIVE); UROBILINOGEN,URINE 0.2 EU/dL (<2.0)
[2024-07-20 17:10] LABS: BACTERIA,URINE 4+ (NEGATIVE); EPITHELIAL CELLS,URINE FEW (NONE-FEW); RBC,URINE 0-2 (0-2/HPF)
[2024-07-20 18:36] VITALS: BP 127/91; PULSE 61
== END 2024-07-20 18:36 | disposition home or self-care (01) ==
LOC: MW.ED 14:49
DX: R11.2 Nausea with vomiting, unspecified (principal); N30.00 Acute cystitis without hematuria; R19.7 Diarrhea, unspecified; I10 Essential (primary) hypertension; K21.9 Gastro-esophageal reflux disease without esophagitis; E03.9 Hypothyroidism, unspecified; Z75.8 Other problems related to medical facilities and other health care; Z88.5 Allergy status to narcotic agent; Z88.2 Allergy status to sulfonamides; Z88.8 Allergy status to other drugs, medicaments and biological substances; Z79.899 Other long term (current) drug therapy
CPT/HCPCS: 36415; 80053; 81001; 83690; 83735; 85025; 87086; 96361; 96374; 99284; J0780; J7030; 99283

== ENCOUNTER 2024-07-23 08:57 | Inpatient (IN) | payer OTHER ==
[2024-07-23] MEDS: Sodium Chloride 0.9% 1,000 ML IV ONE (09:30)
[2024-07-23 09:46] LABS: BASOPHILS ABSOLUTE AUTO 0.03 K/uL (0.00-0.20); BASOPHILS PERCENT AUTO 0.3 % (0.0-1.0); EOSINOPHILS ABSOLUTE AUTO 0.02 K/uL (0.00-0.45); EOSINOPHILS PERCENT AUTO 0.2 % (0.0-6.0); HEMATOCRIT 48.2 % (37.0-47.0); HEMOGLOBIN 17.1 g/dL (12.0-16.0); IMMATURE GRAN ABSOLUTE AUTO 0.02 K/uL (0.00-0.05); IMMATURE GRAN PERCENT AUTO 0.2 % (0.0-0.4); LYMPHOCYTES PERCENT AUTO 40.9 % (24.0-44.0); MEAN CORPUSCULAR HGB CONC 35.5 g/dL (32.0-36.0); MEAN CORPUSCULAR VOLUME 95.8 fL (83.0-99.0); MEAN PLATELET VOLUME 9.5 fL (9.4-12.3); MONOCYTES ABSOLUTE AUTO 0.81 K/uL (0.00-0.80); MONOCYTES PERCENT AUTO 9.2 % (0.0-8.0); NEUTROPHILS ABSOLUTE AUTO 4.33 K/uL (1.80-7.70); NEUTROPHILS PERCENT AUTO 49.2 % (41.0-71.0); PLATELET COUNT,PLT 179 K/uL (150-400); RED BLOOD CELL COUNT 5.03 M/uL (4.10-5.30); WHITE BLOOD CELL COUNT,WBC 8.81 K/uL (3.9-11.3)
[2024-07-23 09:50] LABS: A/G RATIO 1.2 (0.9-1.6); ALBUMIN 4.2 g/dL (3.4-5.0); BILIRUBIN TOTAL 0.8 mg/dL (0.2-1.0); CALCIUM 9.8 mg/dL (8.5-10.1); CARBON DIOXIDE,CO2 20.6 mmol/L (21.0-32.0); CREATININE 1.3 mg/dL (0.6-1.0); EST CRCL DRUG DOSING (CG) 36.16 mL/min; POTASSIUM,K 2.9 mmol/L (3.5-5.1); PROTEIN TOTAL,TP 7.8 g/dL (6.4-8.2)
[2024-07-23] MEDS: Ondansetron 4 MG/2 ML SDV IVPUSH ONE (09:57)
[2024-07-23] MEDS: Prochlorperazine 10 MG/2 ML SDV IVPUSH ONE (10:50)
[2024-07-23 11:17] LABS: APPEARANCE,URINE SLT CLOUDY; BILIRUBIN,URINE NEGATIVE (NEGATIVE); COLOR,URINE YELLOW; GLUCOSE,URINE NEGATIVE (NEGATIVE); KETONES,URINE 15 mg/dL (NEGATIVE); LEUKOCYTE ESTERASE,URINE TRACE (NEGATIVE); NITRITE,URINE POSITIVE (NEGATIVE); OCCULT BLOOD,URINE NEGATIVE (NEGATIVE); PROTEIN,URINE NEGATIVE (NEGATIVE); UROBILINOGEN,URINE 0.2 EU/dL (<2.0)
[2024-07-23 11:26] LABS: BACTERIA,URINE 4+ (NEGATIVE); MUCUS,URINE LIGHT (NONE-MOD); SQUAMOUS EPITHELIAL CELLS,UR MODERATE
[2024-07-23] MEDS ORDERED: Ondansetron 4 MG/2 ML SDV IVPUSH PRN (12:40)
[2024-07-23] MEDS: cefTRIAXone 1 GM in Water For Injection, Sterile 10 ML IVPUSH ONE (14:15)
[2024-07-23] MEDS: Sodium Chloride 0.9% 1,000 ML IV SCH (18:12)
[2024-07-23] MEDS: NS with KCl 40mEq 1,000 ML IV SCH (20:04)
[2024-07-24] MEDS: Melatonin 3 MG Tab PO STA (02:36)
[2024-07-24 06:39] LABS: BASOPHILS ABSOLUTE AUTO 0.01 K/uL (0.00-0.20); BASOPHILS PERCENT AUTO 0.2 % (0.0-1.0); EOSINOPHILS ABSOLUTE AUTO 0.03 K/uL (0.00-0.45); EOSINOPHILS PERCENT AUTO 0.5 % (0.0-6.0); HEMATOCRIT 37.3 % (37.0-47.0); HEMOGLOBIN 12.9 g/dL (12.0-16.0); IMMATURE GRAN ABSOLUTE AUTO 0.01 K/uL (0.00-0.05); IMMATURE GRAN PERCENT AUTO 0.2 % (0.0-0.4); LYMPHOCYTES PERCENT AUTO 35.8 % (24.0-44.0); MEAN CORPUSCULAR HEMOGLOBIN 33.3 pg (28.0-32.0); MEAN CORPUSCULAR HGB CONC 34.6 g/dL (32.0-36.0); MEAN CORPUSCULAR VOLUME 96.4 fL (83.0-99.0); MEAN PLATELET VOLUME 9.6 fL (9.4-12.3); MONOCYTES ABSOLUTE AUTO 0.52 K/uL (0.00-0.80); MONOCYTES PERCENT AUTO 8.5 % (0.0-8.0); NEUTROPHILS ABSOLUTE AUTO 3.37 K/uL (1.80-7.70); NEUTROPHILS PERCENT AUTO 54.8 % (41.0-71.0); PLATELET COUNT,PLT 131 K/uL (150-400); RED BLOOD CELL COUNT 3.87 M/uL (4.10-5.30); WHITE BLOOD CELL COUNT,WBC 6.14 K/uL (3.9-11.3)
[2024-07-24] MEDS: Levothyroxine 75 MCG Tab PO SCH (06:44)
[2024-07-24 07:13] LABS: A/G RATIO 1.1 (0.9-1.6); ALBUMIN 3.1 g/dL (3.4-5.0); BILIRUBIN TOTAL 0.6 mg/dL (0.2-1.0); CALCIUM 8.8 mg/dL (8.5-10.1); CARBON DIOXIDE,CO2 19.8 mmol/L (21.0-32.0); EST CRCL DRUG DOSING (CG) 47.01 mL/min; MAGNESIUM 1.8 mg/dL (1.8-2.4); PHOSPHORUS 2.7 mg/dL (2.6-4.7); POTASSIUM,K 3.4 mmol/L (3.5-5.1); PROTEIN TOTAL,TP 5.9 g/dL (6.4-8.2)
[2024-07-24] MEDS: buPROPion 150 MG Tab.ER PO SCH (08:33)
[2024-07-24] MEDS: Pantoprazole 40 MG Tab.CR PO SCH (08:33)
[2024-07-24] MEDS: Escitalopram 10 MG Tab PO SCH (08:33)
[2024-07-24] MEDS: Acetaminophen 325 MG Tab PO PRN (08:33)
[2024-07-24] MEDS: Enoxaparin 40 MG/0.4 ML Syringe SUBCUT SCH (08:35)
[2024-07-24] MEDS: Prochlorperazine 10 MG/2 ML SDV IVPUSH PRN (08:43)
[2024-07-24] MEDS ORDERED: [UNRECOGNIZED DRUG - OTHER] PO PRN (09:26)
[2024-07-24] MEDS ORDERED: PSEUDOEPHEDRINE PO PRN (09:26)
[2024-07-24] MEDS ORDERED: LORATADINE PO PRN (09:26)
[2024-07-24] MEDS: cefTRIAXone 1 GM in Water For Injection, Sterile 10 ML IVPUSH SCH (12:48)
[2024-07-24] MEDS: Sodium Chloride 0.9% 1,000 ML IV SCH (12:49)
[2024-07-24] MEDS: Phenazopyridine 200 MG Tab PO PRN (12:59)
[2024-07-24] MEDS ORDERED: CINACALCET 30 MG PO SCH (21:00)
[2024-07-25 07:06] LABS: BASOPHILS ABSOLUTE AUTO 0.01 K/uL (0.00-0.20); BASOPHILS PERCENT AUTO 0.2 % (0.0-1.0); EOSINOPHILS ABSOLUTE AUTO 0.06 K/uL (0.00-0.45); EOSINOPHILS PERCENT AUTO 1.1 % (0.0-6.0); HEMATOCRIT 36.7 % (37.0-47.0); HEMOGLOBIN 12.9 g/dL (12.0-16.0); IMMATURE GRAN ABSOLUTE AUTO 0.01 K/uL (0.00-0.05); IMMATURE GRAN PERCENT AUTO 0.2 % (0.0-0.4); LYMPHOCYTES ABSOLUTE AUTO 1.72 K/uL (1.00-4.80); LYMPHOCYTES PERCENT AUTO 32.6 % (24.0-44.0); MEAN CORPUSCULAR HGB CONC 35.1 g/dL (32.0-36.0); MEAN CORPUSCULAR VOLUME 96.8 fL (83.0-99.0); MEAN PLATELET VOLUME 9.5 fL (9.4-12.3); MONOCYTES ABSOLUTE AUTO 0.41 K/uL (0.00-0.80); MONOCYTES PERCENT AUTO 7.8 % (0.0-8.0); NEUTROPHILS ABSOLUTE AUTO 3.06 K/uL (1.80-7.70); NEUTROPHILS PERCENT AUTO 58.1 % (41.0-71.0); PLATELET COUNT,PLT 110 K/uL (150-400); RED BLOOD CELL COUNT 3.79 M/uL (4.10-5.30); WHITE BLOOD CELL COUNT,WBC 5.27 K/uL (3.9-11.3)
[2024-07-25 07:39] LABS: A/G RATIO 1.5 (0.9-1.6); ALBUMIN 3.5 g/dL (3.4-5.0); BILIRUBIN TOTAL 0.6 mg/dL (0.2-1.0); CALCIUM 8.8 mg/dL (8.5-10.1); CARBON DIOXIDE,CO2 22.3 mmol/L (21.0-32.0); EST CRCL DRUG DOSING (CG) 47.01 mL/min; MAGNESIUM 1.6 mg/dL (1.8-2.4); POTASSIUM,K 2.9 mmol/L (3.5-5.1); PROTEIN TOTAL,TP 5.8 g/dL (6.4-8.2)
[2024-07-25] MEDS: Magnesium Sulf/Wat 4 GM/100 mL 4 GM in Premix Bag 1 BAG IV ONE (09:12)
[2024-07-25] MEDS: Potassium Chloride 10% 20 MEQ/15 ML Soln 15 ML UD Cup PO ONE ×2 (09:13→11:09)
[2024-07-25 11:49] VITALS: BP 186/86; PULSE 60
== END 2024-07-25 11:55 | disposition home or self-care (01) | DRG 641 ==
LOC: MW.ED 08:57 → MW.MS 13:04 → OBSVTOIN 07-24 09:30 → MW.MS 07-24 13:15
PROVIDERS: ADMIT Family Medicine; ATTEND Family Medicine
DX: E86.0 Dehydration (principal); N39.0 Urinary tract infection, site not specified; Z94.81 Bone marrow transplant status; K52.9 Noninfective gastroenteritis and colitis, unspecified; E03.9 Hypothyroidism, unspecified; F41.9 Anxiety disorder, unspecified; F32.A Depression, unspecified; B96.20 Unspecified Escherichia coli [E. coli] as the cause of diseases classified elsewhere; E87.6 Hypokalemia; I10 Essential (primary) hypertension; Z96.649 Presence of unspecified artificial hip joint; Z96.659 Presence of unspecified artificial knee joint; Z90.49 Acquired absence of other specified parts of digestive tract; Z85.6 Personal history of leukemia; Z79.890 Hormone replacement therapy; Z88.2 Allergy status to sulfonamides; Z88.5 Allergy status to narcotic agent
CPT/HCPCS: 36415; 74176; 74176-26; 80053; 81001; 83735; 84100; 85025; 87086; 87088; 87186; 96361; 96365; 96366; 96372; 96374; 96375; 96376; 99284; 99285-25; A9270-GY; G0378; J0696; J0780; J1650; J3475; J3480; J7030